=== PATIENT | female | born 1935 | race Asian ===

== ENCOUNTER 2018-08-28 15:24 | Inpatient (IN) | payer MEDICARE, OTHER ==
[~2018-08-28] VITALS: Ht 157.5 cm; Wt 49.5 kg
[2018-08-28] MEDS ORDERED: SOD CHLORIDE 0.9% 1,000 ML IV STA (18:23)
[2018-08-28] MEDS ORDERED: KETOROLAC 15 MG INJ IV STA (18:23)
[2018-08-28] MEDS ORDERED: ACYCLOVIR 500 MG in DEXTROSE 5% 100 ML IVPB ONE (18:30)
[2018-08-28] MEDS ORDERED: CEFTRIAXONE 1 GM/50 ML (PMX) 50 ML IVPB ONE (18:30)
[2018-08-28] MEDS ORDERED: CLON-379 PO (18:41)
[2018-08-28] MEDS ORDERED: OLME40TA13 PO (18:41)
[2018-08-28] MEDS ORDERED: METF-849 PO (18:42)
[2018-08-28] MEDS ORDERED: METO-429 PO (18:42)
[2018-08-28] MEDS ORDERED: HYDR12.58 PO (18:42)
[2018-08-28] MEDS ORDERED: METO-407 PO (18:42)
[2018-08-28] MEDS ORDERED: TETRACAINE 0.5% 4 ML OPH RIGHT EYE ONE (19:00)
--- NOTE | 2018-08-28 19:11 | ERD ---
ER Documentation Chief Complaint Chief Complaint RIGHT EYE PERIORBITAL SWELLING REDNESS/ITCHINESS SINCE AM HPI 83-year-old woman brought in by for soft tissue swelling over the right eye times 2 days, she also has a rash to the right upper forehead and across the right face that the states has been present for about 2-3 days although he is unsure of the timeline. Patient states she had a headache about 1 week ago which began resolved spontaneously. Patient has had no recent trauma, no falls, no weakness in her arms or legs, no complaints of chest pain or shortness of breath, no vomiting. ROS All systems reviewed and are negative except as per history of present illness. Medications Home Meds Reported Medications Hydrochlorothiazide* (Hydrochlorothiazide*) 12.5 Mg Tablet, 12.5 MG PO DAILY, #30 TAB 08/28/18 Metformin* (Glucophage*) 500 Mg Tab, 500 MG PO BID WITH MEALS, #90 TAB 08/28/18 Metoprolol Tartrate* (Lopressor*) 100 Mg Tablet, 100 MG PO QAM, #60 TAB 08/28/18 Metoprolol Tartrate* (Lopressor*) 50 Mg Tab, 50 MG PO QPM, #60 TAB 08/28/18 Olmesartan Medoxomil (Benicar) 40 Mg Tablet, 40 MG PO DAILY, #30 TAB 08/28/18 Clonidine Hcl* (Clonidine Hcl*) 0.1 Mg Tab, 0.1 MG PO Q8, TAB 08/28/18 Allergies Allergies: Coded Allergies: No Known Allergy (Unverified , 08/28/18) PMhx/Soc Diabetes mellitus, hypertension Medical and Surgical Hx: pt denies Medical Hx, pt denies Surgical Hx Hx Alcohol Use: No Hx Substance Use: No Hx Tobacco Use: No Smoking Status: Never smoker FmHx Family History: No diabetes Physical Exam Vitals Vital Signs Date Temp Pulse Resp B/P (MAP) Pulse Ox O2 O2 Flow FiO2 Time Delivery Rate 08/28/18 99.4 68 20 188/78 97 Room Air 18:45 (114) 08/28/18 99.4 74 20 190/97 97 15:26 (128) Physical Exam Const: No acute distress, afebrile HEENT: There is a papulovesicular eruption over the right forehead and right side of the face with soft tissue edema to the right upper and lower eyelids consistent with possible early periorbital cellulitis, no Kernig sign, no Brudzinski sign, pupils equal round reactive to light. Tympanic membrane on the right is without bulging or erythema, right EAC appears clean and dry. Negative Zhang's sign Resp: Clear to auscultation bilaterally Cardio: Regular rate and rhythm, no murmurs Abd: Soft, non tender, non distended. Skin: Papulovesicular rash over the right side of the face with soft tissue edema over the right orbital soft tissue Back: No midline or flank tenderness Ext: No cyanosis, or edema Neur: Awake and alert x3, no focal deficits or facial asymmetry, pupils equal round reactive to light Psych: Normal Mood and Affect Result Diagram: 08/28/18183408/28/181834 Results 24 hrs Laboratory Tests Test 08/28/18 18:35 White Blood Count 6.7 10^3/ul Red Blood Count 4.84 10^6/ul Hemoglobin 12.6 g/dl Hematocrit 39.2 % Mean Corpuscular Volume 81.0 fl Mean Corpuscular Hemoglobin 26.0 pg Mean Corpuscular Hemoglobin Concent 32.1 g/dl Red Cell Distribution Width 13.4 % Platelet Count 149 10^3/UL Mean Platelet Volume 9.4 fl Immature Granulocytes % 0.400 % Neutrophils % 66.3 % Lymphocytes % 27.3 % Monocytes % 5.2 % Eosinophils % 0.4 % Basophils % 0.4 % Nucleated Red Blood Cells % 0.0 /100WBC Immature Granulocytes # 0.030 10^3/ul Neutrophils # 4.4 10^3/ul Lymphocytes # 1.8 10^3/ul Monocytes # 0.4 10^3/ul Eosinophils # 0.0 10^3/ul Basophils # 0.0 10^3/ul Nucleated Red Blood Cells # 0.0 10^3/ul Urine Color TERA Urine Clarity CLOUDY Urine pH 5.0 Urine Specific [place] 1.023 Urine Ketones TRACE mg/dL Urine Nitrite NEGATIVE mg/dL Urine Bilirubin NEGATIVE mg/dL Urine Urobilinogen 1+ mg/dL Urine Leukocyte Esterase 1+ Rafia/ul Urine Microscopic RBC 8 /HPF Urine Microscopic WBC 102 /HPF Urine Bacteria MANY /HPF Urine Hemoglobin NEGATIVE mg/dL Urine Glucose NEGATIVE mg/dL Urine Total Protein 3+ mg/dl Sodium Level 139 mmol/L Potassium Level 4.6 mmol/L Chloride Level 104 mmol/L Carbon Dioxide Level 24 mmol/L Anion Gap 11 Blood Urea Nitrogen 45 mg/dl Creatinine 3.02 mg/dl Est Glomerular Filtrat Rate mL/min mL/min Glucose Level 184 mg/dl Calcium Level 8.8 mg/dl Total Bilirubin 0.3 mg/dl Direct Bilirubin 0.00 mg/dl Indirect Bilirubin 0.3 mg/dl Aspartate Amino Transf (AST/SGOT) 28 IU/L Alanine Aminotransferase (ALT/SGPT) 20 IU/L Alkaline Phosphatase 102 IU/L Troponin I < 0.012 ng/ml Total Protein 6.6 g/dl Albumin 3.5 g/dl Globulin 3.10 g/dl Albumin/Globulin Ratio 1.12 Lipase 95 U/L Current Medications Medications Dose Sig/Alberto Start Time Status Last (Trade) Ordered Route PRN Stop Time Admin Dose Reason Admin Acyclovir 100 ml @ ONCE ONCE 08/28/18 DC 08/28/18 500 mg/ 100 mls/hr IVPB 18:30 19:42 Dextrose 08/28/18 19:29 Ceftriaxone 50 ml @ ONCE ONCE 08/28/18 DC 08/28/18 Sodium 100 mls/hr IVPB 18:30 18:55 08/28/18 18:59 Sodium 1,000 ml @ Q1H STAT 08/28/18 DC 08/28/18 Chloride 1,000 mls/hr IV 18:23 18:54 08/28/18 19:22 Ketorolac 15 mg ONCE STAT 08/28/18 DC 08/28/18 Tromethamine IV 18:23 18:55 (Toradol) 08/28/18 18:31 Tetracaine 1 drop ONCE ONCE 08/28/18 DC HCl RIGHT EYE 19:00 (Tetracaine 08/28/18 19:01 0.5% Steri-Unit Gavi) Procedures/MDM IV line was established patient was placed on air sampling and monitoring rhythm strip reve aled a sinus rhythm at about 60 bpm with upright P and T waves. Patient was afebrile EKG performed, read by me revealed a normal sinus rhythm at 65 bpm, normal axis, first-degree AV block at 230 ms, no concerning ST elevations or depressions noted I administered 1 L normal saline IV, Toradol 15 mg IV, acyclovir 500 mg IV, and ceftriaxone 1 g IV. I suspect patient has superinfection over the right orbital tissue secondary to herpes zoster One AP view of the chest performed, read by me reveals no acute infiltrates, normal mediastinum, sharp costophrenic and cardiac borders, no air under the diaphragm. Otherwise unremarkable chest x-ray. CT scan of the brain was performed, impression: 1. 14.5 x 11.0 mm mass with increased attenuation deep left parietal lobe as described. This could represent an acute intra-axial bleed without significant surrounding vasogenic edema, a large acute subarachnoid thrombus or, deep posterior falx meningioma (less likely). 2. Chronic bilateral cerebral microvascular ischemic disease. CT scan of the maxillofacial bones were performed that was no retro-orbital extension on the right and no concerning findings. I applied tetracaine anesthetic ophthalmic solution and then stained the right cornea with fluorescein and there was no floor seen uptake on the right cornea. I obtain neurosurgical consultation given the patient's CT scan findings, he ki ndly agreed to consult the patient and saw the patient at the bedside, no need for acute neurosurgical intervention at this time and he will continue to consult. CBC was normal, electrolytes revealed dehydration and acute kidney injury with a BUN/creatinine of 45/3, liver function tests were normal, troponin was negative, urinalysis positive for infection. Critical Care: Time: 52 minutes, this was time separate from other billable procedures. Treatments/Evaluations: Close monitoring and treatment of unstable vital signs, cardiorespiratory, and neurologic status, while maintaining tight balance of fluid, respiratory, and cardiac interventions. Departure Diagnosis: Primary Impression: Shingles Herpes zoster complications: without complications Qualified Codes: B02.9 - Zoster without complications Additional Impressions: Periorbital cellulitis Laterality: right Qualified Codes: L03.213 - Periorbital cellulitis Dehydration Acute UTI Acute kidney injury Brain mass Condition: VEL Rodríguez MD Aug 28, 2018 19:11
[2018-08-28] MEDS ORDERED: DOCUSATE SODIUM 100 MG CAP PO PRN (21:30)
[2018-08-28] MEDS ORDERED: ACETAMINOPHEN 325 MG TAB PO PRN (21:30)
[2018-08-28] MEDS ORDERED: BISACODYL (EC) 5 MG TAB PO PRN (21:30)
[2018-08-28] MEDS ORDERED: NACL 0.9% 3 ML SYG IV SCH (21:30)
[2018-08-28] MEDS ORDERED: hydrALAzine 20 MG INJ IV PRN (21:30)
[2018-08-28] MEDS ORDERED: NON-FORMULARY/PATIENT OWN MED (Olmesartan Medoxomil (Benicar) 40 MG) PO SCH (21:30)
[2018-08-28] MEDS ORDERED: HYDROCODONE/APAP (5/325) TAB PO PRN (21:30)
[2018-08-28] MEDS: METOPROLOL 100 MG TAB PO SCH (21:52)
[2018-08-28] MEDS ORDERED: LOSARTAN 50 MG TAB PO SCH (22:00)
--- NOTE | 2018-08-28 22:14 | CONS ---
Assessment/Plan Assessment/Plan Assessment/Plan (Daily) Diagnosis 1) Meningioma 83 year old woman with incidental meningioma and another small lesion concerning for meningioma vs subacute bleed. - BP control (currently 190s) - MRI in AM - Regular diet - no indication for surgery Consultation Date/Type/Reason Admit Date/Time Date of Consultation: Aug 28, 2018 Type of Consult Neurosurgery Reason for Consultation Intracranial mass Date/Time of Note DATE: 08/28/18 TIME: 22:04 Hx of Present Illness Ms. Castaneda is an 83 year old female who presented with HSV infection and right corie-orbital swelling. A CT scan was performed and demonstrated a small intracranial meningioma and another larger, but still small lesion concerning for falcine meningioma vs. subacute bleed. She has no weakness or confusion. She denies use of blood thinners. Past Medical History Home Meds Reported Medications Hydrochlorothiazide* (Hydrochlorothiazide*) 12.5 Mg Tablet, 12.5 MG PO DAILY, #30 TAB 08/28/18 Metformin* (Glucophage*) 500 Mg Tab, 500 MG PO BID WITH MEALS, #90 TAB 08/28/18 Metoprolol Tartrate* (Lopressor*) 100 Mg Tablet, 100 MG PO QAM, #60 TAB 08/28/18 Metoprolol Tartrate* (Lopressor*) 50 Mg Tab, 50 MG PO QPM, #60 TAB 08/28/18 Olmesartan Medoxomil (Benicar) 40 Mg Tablet, 40 MG PO DAILY, #30 TAB 08/28/18 Clonidine Hcl* (Clonidine Hcl*) 0.1 Mg Tab, 0.1 MG PO Q8, TAB 08/28/18 Medications Current Medications Clonidine (Catapres) 0.1 mg Q8 PO Last administered on 08/28/18at 21:51; Admin Dose 0.1 MG; Start 08/28/18 at 22:00 Hydrochlorothiazide (Hydrochlorothiazide) 12.5 mg DAILY PO ; Start 08/29/18 at 09:00; Status Future Hold Metoprolol Tartrate (Lopressor) 50 mg QPM PO ; Start 08/29/18 at 21:00 Metoprolol Tartrate (Lopressor) 100 mg QAM PO Last administered on 08/28/18at 21:52; Admin Dose 100 MG; Start 08/28/18 at 21:30 Hydralazine HCl (Apresoline) 20 mg Q6H PRN IV ELEVATED BLOOD PRESSURE; Start 08/28/18 at 21:30 Hydralazine HCl (Apresoline) 10 mg Q4H PRN IV ELEVATED BLOOD PRESSURE; Start 08/28/18 at 21:30 IV Flush (NS 3 ml) 3 ml PER PROTOCOL IV ; Start 08/28/18 at 21:30 Ondansetron HCl (Zofran Inj) 4 mg Q6H PRN IV NAUSEA/VOMITING; Start 08/28/18 at 21:30 Acetaminophen (Tylenol Tab) 650 mg Q6H PRN PO .PAIN 1-3 OR TEMP; Start 08/28/18 at 21:30 Acetaminophen/ Hydrocodone Bitart (Honor (5/325)) 1 tab Q6H PRN PO .PAIN 4-6; Start 08/28/18 at 21:30 Docusate Sodium (Colace) 100 mg Q12H PRN PO .CONSTIPATION; Start 08/28/18 at 21:30 Bisacodyl (Dulcolax) 5 mg DAILY PRN PO .CONSTIPATION; Start 08/28/18 at 21:30 Ceftriaxone Sodium 50 ml @ 100 mls/hr Q24H IVPB ; Start 08/29/18 at 18:00 Losartan Potassium (Cozaar) 100 mg DAILY PO ; Start 08/28/18 at 22:00 Allergies: Coded Allergies: No Known Allergy (Unverified , 08/28/18) Social History Smoking Status: Never smoker Exam/Review of Systems Exam Vitals Vital Signs Date Temp Pulse Resp B/P (MAP) Pulse Ox O2 O2 Flow FiO2 Time Delivery Rate 08/28/18 99.4 75 20 199/81 100 Room Air 21:40 (120) Exam awake alert right orbital erythema and swelling full strenth Results Result Diagram: 08/28/18 1835 08/28/18 1835 Results 24hrs Laboratory Tests Test 08/28/18 18:35 White Blood Count 6.7 Red Blood Count 4.84 Hemoglobin 12.6 Hematocrit 39.2 Mean Corpuscular Volume 81.0 L Mean Corpuscular Hemoglobin 26.0 L Mean Corpuscular Hemoglobin Concent 32.1 Red Cell Distribution Width 13.4 Platelet Count 149 Mean Platelet Volume 9.4 Immature Granulocytes % 0.400 Neutrophils % 66.3 Lymphocytes % 27.3 Monocytes % 5.2 Eosinophils % 0.4 Basophils % 0.4 Nucleated Red Blood Cells % 0.0 Immature Granulocytes # 0.030 Neutrophils # 4.4 Lymphocytes # 1.8 Monocytes # 0.4 Eosinophils # 0.0 Basophils # 0.0 Nucleated Red Blood Cells # 0.0 Urine Color TERA Urine Clarity CLOUDY A Urine pH 5.0 Urine Specific [place] 1.023 Urine Ketones TRACE A Urine Nitrite NEGATIVE Urine Bilirubin NEGATIVE Urine Urobilinogen 1+ H Urine Leukocyte Esterase 1+ H Urine Microscopic RBC 8 H Urine Microscopic WBC 102 H Urine Bacteria MANY A Urine Hemoglobin NEGATIVE Urine Glucose NEGATIVE Urine Total Protein 3+ H Sodium Level 139 Potassium Level 4.6 Chloride Level 104 Carbon Dioxide Level 24 Anion Gap 11 Blood Urea Nitrogen 45 H Creatinine 3.02 H Est Glomerular Filtrat Rate mL/min Glucose Level 184 Calcium Level 8.8 Total Bilirubin 0.3 Direct Bilirubin 0.00 Indirect Bilirubin 0.3 Aspartate Amino Transf (AST/SGOT) 28 Alanine Aminotransferase (ALT/SGPT) 20 Alkaline Phosphatase 102 Troponin I < 0.012 Total Protein 6.6 Albumin 3.5 Globulin 3.10 Albumin/Globulin Ratio 1.12 Lipase 95 Imaging Imaging Anterior small calcified falcine meningioma Larger posterior falcine lesion - meningioma vs subacute hemorrhage with subarachnoid extension Medications Medication Current Medications Clonidine (Catapres) 0.1 mg Q8 PO Last administered on 08/28/18at 21:51; Admin Dose 0.1 MG; Start 08/28/18 at 22:00 Hydrochlorothiazide (Hydrochlorothiazide) 12.5 mg DAILY PO ; Start 08/29/18 at 09:00; Status Future Hold Metoprolol Tartrate (Lopressor) 50 mg QPM PO ; Start 08/29/18 at 21:00 Metoprolol Tartrate (Lopressor) 100 mg QAM PO Last administered on 08/28/18at 21:52; Admin Dose 100 MG; Start 08/28/18 at 21:30 Hydralazine HCl (Apresoline) 20 mg Q6H PRN IV ELEVATED BLOOD PRESSURE; Start 08/28/18 at 21:30 Hydralazine HCl (Apresoline) 10 mg Q4H PRN IV ELEVATED BLOOD PRESSURE; Start 08/28/18 at 21:30 IV Flush (NS 3 ml) 3 ml PER PROTOCOL IV ; Start 08/28/18 at 21:30 Ondansetron HCl (Zofran Inj) 4 mg Q6H PRN IV NAUSEA/VOMITING; Start 08/28/18 at 21:30 Acetaminophen (Tylenol Tab) 650 mg Q6H PRN PO .PAIN 1-3 OR TEMP; Start 08/28/18 at 21:30 Acetaminophen/ Hydrocodone Bitart (Honor (5/325)) 1 tab Q6H PRN PO .PAIN 4-6; Start 08/28/18 at 21:30 Docusate Sodium (Colace) 100 mg Q12H PRN PO .CONSTIPATION; Start 08/28/18 at 21:30 Bisacodyl (Dulcolax) 5 mg DAILY PRN PO .CONSTIPATION; Start 08/28/18 at 21:30 Ceftriaxone Sodium 50 ml @ 100 mls/hr Q24H IVPB ; Start 08/29/18 at 18:00 Losartan Potassium (Cozaar) 100 mg DAILY PO ; Start 08/28/18 at 22:00 ZHANNA DIAZ MD Aug 28, 2018 22:14
[2018-08-28] MEDS ORDERED: LORAZEPAM 0.5 MG TAB PO ONE (22:30)
[2018-08-28 22:40] VITALS: BP 158/78; PULSE 74; RESP 20; Ht 157.5 cm; Wt 49.5 kg
[2018-08-28 22:44] VITALS: PULSE 72
--- NOTE | 2018-08-28 23:38 | HP ---
Date/Time of Note Date/Time of Note DATE: 08/28/18 TIME: 23:37 Assessment/Plan VTE Prophylaxis SCD applied (from Nsg): Yes Pharmacological prophylaxis: NA/contraindicated Pharm contraindication: low risk/ambulating Lines/Catheters IV Catheter Type (from Nrsg): [place] Assessment/Plan Hospital Course This is a 83-year-old female being admitted to the telemetry floor for: #1 right periorbital cellulitis with possible shingles: Questionable dermatomal pattern of rash seen from the right upper eyelid up to the scalp, no crusting lesions noted. However concern for possible shingles related infection. Patient was started on acyclovir in the ED, will continue acyclovir 200 mg twice daily(renal dosing) for now. Will also treat for periorbital cellulitis with clindamycin and amoxicillin(renal dosing). Patient denies any pain upon movement of her eyes. #2 parietal lobe mass: CT of the brain showed a 14.5 x 11.0 mm mass with increased attenuation deep left parietal lobe as described. This could represent an acute intra-axial bleed without significant surrounding vasogenic edema, a large acute subarachnoid thrombus or, deep posterior falx meningioma (less likely). Patient was seen and evaluated by neurosurgery who at the current time did not recommend any acute surgical intervention. Recommendation was to control patient's blood pressure as well as obtain an MRI with and without contrast which will be ordered. #3 right eye conjunctivitis: There also appears to be purulent discharge. Will prescribe ofloxacin 2 drops to the right eye every 6 hours times 7 days #4 hypertensive urgency: Patient blood pressure was noted to be in the systolic of 199. Will continue home clonidine, metoprolol while holding hydrochlorothiazide and Cozaar given patient's renal function. PRN hydralazine. #5 acute versus acute on chronic kidney disease: I do not have a previous baseline creatinine. Creatinine at the current time is 3.0. Urinalysis does show presence of 3+ protein as well as leukoesterase: We will provide IV fluid hydration with normal saline. Will monitor renal function. Urine microalbumin and microscopic UA. Renal ultrasound. Will consult nephrology #6 urinary tract infection: Await urine culture, ceftriaxone 1 g every 24 hours #7 hypertension: Please see #3 # 8diabetes mellitus: We will check hemoglobin A 1C, hold home oral medications #9 DVT GI prophylaxis: SCDs, no GI prophylaxis indicated Further treatment strategy will be implemented as per the clinical course Result Diagram: 08/28/18183408/28/181834 Results 24hrs Laboratory Tests Test 08/28/18 18:35 White Blood Count 6.7 Red Blood Count 4.84 Hemoglobin 12.6 Hematocrit 39.2 Mean Corpuscular Volume 81.0 L Mean Corpuscular Hemoglobin 26.0 L Mean Corpuscular Hemoglobin Concent 32.1 Red Cell Distribution Width 13.4 Platelet Count 149 Mean Platelet Volume 9.4 Immature Granulocytes % 0.400 Neutrophils % 66.3 Lymphocytes % 27.3 Monocytes % 5.2 Eosinophils % 0.4 Basophils % 0.4 Nucleated Red Blood Cells % 0.0 Immature Granulocytes # 0.030 Neutrophils # 4.4 Lymphocytes # 1.8 Monocytes # 0.4 Eosinophils # 0.0 Basophils # 0.0 Nucleated Red Blood Cells # 0.0 Urine Color TERA Urine Clarity CLOUDY A Urine pH 5.0 Urine Specific [place] 1.023 Urine Ketones TRACE A Urine Nitrite NEGATIVE Urine Bilirubin NEGATIVE Urine Urobilinogen 1+ H Urine Leukocyte Esterase 1+ H Urine Microscopic RBC 8 H Urine Microscopic WBC 102 H Urine Bacteria MANY A Urine Hemoglobin NEGATIVE Urine Glucose NEGATIVE Urine Total Protein 3+ H Sodium Level 139 Potassium Level 4.6 Chloride Level 104 Carbon Dioxide Level 24 Anion Gap 11 Blood Urea Nitrogen 45 H Creatinine 3.02 H Est Glomerular Filtrat Rate mL/min Glucose Level 184 Calcium Level 8.8 Total Bilirubin 0.3 Direct Bilirubin 0.00 Indirect Bilirubin 0.3 Aspartate Amino Transf (AST/SGOT) 28 Alanine Aminotransferase (ALT/SGPT) 20 Alkaline Phosphatase 102 Troponin I < 0.012 Total Protein 6.6 Albumin 3.5 Globulin 3.10 Albumin/Globulin Ratio 1.12 Lipase 95 HPI/ROS Admit Date/Time Admit Date/Time Hx of Present Illness Chief complaint: Right eye swelling, redness This is a 83-year-old woman who was brought into the ER accompanied by her complaining of right eye swelling that started this morning. Patient and her state that the rash started in the morning when he woke up and that her eye was completely normal yesterday. Patient denies any fevers or any pain. It has been difficult to her to fully open the eyelid however when she does she does not report any changes in her vision. She denies any trauma to the eye. She also has a rash to the right upper forehead and across the right face that the states has been present for about 2-3 days although he is unsure of the timeline. Patient does report that she has had headaches on and off for the past couple of weeks. She denies any problems with ambulation or any speech deficits or any other neurological deficits. Patient has had no recent trauma, no falls, no weakness in her arms or legs, no complaints of chest pain or shortness of breath, no vomiting. Allergies: NKDA Medications: See MAR ROS Const: As per HPI Eyes : As per HPI ENT: As per HPI Respiratory: No shortness of breath, cough, sputum, wheezing, or pleuritic pain Cardiovascular: No chest pain, palpitation, PND, or edema GI : no change in appetite, abdominal pain, nausea, vomiting, diarrhea, constipation, or change in the color his stool Genitourinary: No dysuria, hematuria, flank pain , discharge or CVA tenderness Musculoskeletal: No joint pain, back pain, neck pain, restricted range of motion in neck or joints Skin: As per HPI Neuro: No headache, dizziness, syncope, seizure, focal weakness Endocrine: No polyuria, polydipsia, temperature intolerance Psych: No hallucination, depression, anxiety or suicidal ideation PMH/Family/Social Past Medical History Hypertension, diabetes mellitus Medications Current Medications Clonidine (Catapres) 0.1 mg Q8 PO Last administered on 08/28/18at 21:51; Admin Dose 0.1 MG; Start 08/28/18 at 22:00 Hydrochlorothiazide (Hydrochlorothiazide) 12.5 mg DAILY PO ; Start 08/29/18 at 09:00; Status Future Hold Metoprolol Tartrate (Lopressor) 50 mg QPM PO ; Start 08/29/18 at 21:00 Metoprolol Tartrate (Lopressor) 100 mg QAM PO Last administered on 08/28/18at 21:52; Admin Dose 100 MG; Start 08/28/18 at 21:30 Hydralazine HCl (Apresoline) 20 mg Q6H PRN IV ELEVATED BLOOD PRESSURE; Start 08/28/18 at 21:30 Hydralazine HCl (Apresoline) 10 mg Q4H PRN IV ELEVATED BLOOD PRESSURE; Start 08/28/18 at 21:30 IV Flush (NS 3 ml) 3 ml PER PROTOCOL IV ; Start 08/28/18 at 21:30 Ondansetron HCl (Zofran Inj) 4 mg Q6H PRN IV NAUSEA/VOMITING; Start 08/28/18 at 21:30 Acetaminophen (Tylenol Tab) 650 mg Q6H PRN PO .PAIN 1-3 OR TEMP; Start 08/28/18 at 21:30 Acetaminophen/ Hydrocodone Bitart ([place] (5/325)) 1 tab Q6H PRN PO .PAIN 4-6; Start 08/28/18 at 21:30 Docusate Sodium (Colace) 100 mg Q12H PRN PO .CONSTIPATION; Start 08/28/18 at 21:30 Bisacodyl (Dulcolax) 5 mg DAILY PRN PO .CONSTIPATION; Start 08/28/18 at 21:30 Ceftriaxone Sodium 50 ml @ 100 mls/hr Q24H IVPB ; Start 08/29/18 at 18:00 Losartan Potassium (Cozaar) 100 mg DAILY PO ; Start 08/28/18 at 22:00 Clindamycin HCl (Cleocin) 300 mg Q8 PO ; Start 08/28/18 at 23:00 Amoxicillin (Amoxicillin) 500 mg BID PO ; Start 08/28/18 at 23:00 Acyclovir (Zovirax) 200 mg BID PO ; Start 08/29/18 at 09:00 Coded Allergies: No Known Allergy (Unverified , 08/28/18) Past Surgical History Bilateral cataract surgery Family History Significant Family History: no pertinent family hx Social History Alcohol Use: none Smoking Status: Never smoker Drug Use: none Exam/Review of Systems Vital Signs Vitals Vital Signs Date Temp Pulse Resp B/P (MAP) Pulse Ox O2 O2 Flow FiO2 Time Delivery Rate 08/28/18 99.4 72 20 168/81 98 Room Air 22:25 (110) Exam Exam General: Patient is currently lying in bed in no acute distress HEENT: Right periorbital swelling, erythema of the right eyelids, fluorescein stain did not show any uptake of the right cornea(performed at the bedside by the ED physician with me present) purulent discharge noted as well Neck: Supple with full range of motion. No rigidity or meningismus Chest: Nontender Lungs: Clear to auscultation bilaterally no crackles rales or wheezing Heart: Normal S1-S2, Regular rhythm and rate. No murmur, S3, or S4 Abdomen: Soft , nontender, nondistended , bowel sounds are present. No guarding no rebound tenderness , No masses or organomegaly. No costovertebral temporal angle mass Extremities: Normal to inspection, no edema no cyanosis Skin: Right periorbital swelling, mild erythema of the eyelids, questionable maculopapular rash from the top of the right eyelid tracking up to the scalp and possible dermatomal fashion, no crusting or lesions noted Neurologic: Normal mental status, speech normal, cranial nerves II through XII are intact, motor and sensory are intact, no focal weakness Additional Comments PROCEDURE: CT Brain without contrast. CLINICAL INDICATION: 83-year-old. Headache. Swelling. TECHNIQUE: A CT of the brain was performed on a multi-slice CT scanner utilizing axial imaging from the skull base through the vertex without IV contrast. Multiplanar reformatted images were made. Images were reviewed on a PACS workstation. One or more the following dose reduction techniques were utilized: Automated exposure control, adjustment of mA/ or kV according to patient's size, or use of iterative reconstruction technique. DICOM images are available for review. The CTDIvol is 39.6 mGy and the DLP is see 364.23 mGycm. COMPARISON: None FINDINGS: Cerebral and cerebellar volume loss with cortical sulcal prominence and slight ex vacuo enlargement of the lateral third ventricles. There is a 14.5 x 11.0 mm focus of increased attenuation in the deep left parietal lobe, posterior to the posterior body and splenium of the corpus callosum. No significant surrounding vasogenic edema. Patchy low attenuation changes are present throughout the white matter of the left and right cerebral hemispheres. No acute subdural hemorrhage. Partially calcified 8 mm right fall seen meningioma at the vertex. [place] - white matter differentiation is maintained. Asymmetric decreased attenuation within the left sub insular tracts. No hyperdense MCA or basilar artery sign. Calcified plaque left and right carotid siphons and intradural vertebral arteries. Visualized paranasal sinuses are clear. Mastoid air cells are clear. IMPRESSION: 1. 14.5 x 11.0 mm mass with increased attenuation deep left parietal lobe as de scribed. This could represent an acute intra-axial bleed without significant surrounding vasogenic edema, a large acute subarachnoid thrombus or, deep posterior falx meningioma (less likely). 2. Chronic bilateral cerebral microvascular ischemic disease. Call report given to Dr. Larios at [facility] ED at 2031 hours [place] standard time. RPTAT: [facility] Manuel Velasco, Physician Date Time Electronically viewed and signed by Manuel Velasco, Physician on 08/28/2018 20:33 RS/ CC: VEL LARIOS MD [id number] PROCEDURE: XR Chest, 1 View CLINICAL INDICATION: Pain. TECHNIQUE: Frontal view of the chest. COMPARISON: None FINDINGS: LUNGS: No consolidative pulmonary infiltrates noted. PLEURAL SPACE: Unremarkable. No pneumothorax. HEART: Borderline cardiomegaly. MEDIASTINUM: Mild widening of the superior mediastinum, likely secondary to tortuous of the great vessels or substernal goiter. BONES/JOINTS: Mild scoliosis and degeneration of the thoracic spine. IMPRESSION: No consolidative pulmonary infiltrates noted. RPTAT: [facility] Andrea Tomlin, Physician Optical Design Engineer Date Time Electronically viewed and signed by Andrea Tomlin, Physician Optical Design Engineer on 08/28/2018 19:52 RmC/ CC: VEL LARIOS MD [id number] PROCEDURE: CT Maxillofacial without contrast CLINICAL INDICATION: Right orbital swelling. Right orbital shingles. TECHNIQUE: A CT of the facial bones was performed on a multi-slice CT scanner utilizing high-resolution axial images. Sagittal, coronal, and multiplanar reformatted images were made. Additionally, 3-D reformatted images were made. One or more the following dose reduction techniques were utilized: Automated exposure control, adjustment of the mA/ or kV according to patient's size, or use of iterative reconstruction technique. DICOM images are available for review. The CTDIvol is 29.35 mGy and the DLP is 589.67 mGycm. COMPARISON: None. FINDINGS: Osseous structures: The patient is edentulous. Mandible, zygomatic arches, pterygoid plates and anterior maxillary spine are intact. The nasal bones, nasal septum, left and right maxilla and bony orbits are intact. Right maxillary sinus polyp. Soft tissues: Asymmetric right periorbital soft tissue swelling with diffuse edema/inflammatory phlegmon present. No definite localized fluid collections. The globes and retro-orbital soft tissues are symmetric and intact. No foreign body identified. IMPRESSION: 1. Right periorbital soft tissue swelling, nonspecific. 2. No retro-orbital extension. 3. Osseous structures intact. RPTAT: [facility] Physician Vielka Date Time Electronically viewed and signed by Physician Vielka on 08/28/2018 20:36 RS/ CC: VEL LARIOS MD [id number] JAX ANGEL Aug 28, 2018 23:38
[2018-08-29] VITALS (11 sets, daily range): BP systolic 115–241; BP diastolic 56–108; PULSE 55–78; RESP 16–22
[2018-08-29] MEDS: AMOXICILLIN 500 MG CAP PO SCH ×3 (02:34→22:10)
[2018-08-29] MEDS: CIPROFLOXACIN 0.3% 2.5 ML OPH RIGHT EYE SCH ×5 (02:35→22:01)
[2018-08-29] MEDS: CLINDAMYCIN 300 MG CAP PO SCH ×4 (02:35→22:10)
[2018-08-29] MEDS ORDERED: GLUCOSE GEL 15 GRAM TUBE PO PRN ×2 (04:00)
[2018-08-29] MEDS ORDERED: LABETALOL HCL 20MG INJ IV ONE (04:00)
[2018-08-29] MEDS ORDERED: DEXTROSE 50% 50 ML SYRINGE IV PRN ×2 (04:00)
[2018-08-29] MEDS ORDERED: GLUCOSE GEL 15 GRAM TUBE BUCCAL PRN (04:00)
[2018-08-29] MEDS ORDERED: GLUCAGON 1 MG INJ IM PRN (04:00)
[2018-08-29] MEDS ORDERED: morphine 2 MG INJ IV PRN (04:00)
[2018-08-29] MEDS: AMLODIPINE 10 MG TAB PO SCH ×2 (04:20→10:20)
[2018-08-29] MEDS: ONDANSETRON 4 MG INJ IV PRN (04:29)
[2018-08-29] MEDS ORDERED: HYDROCODONE/APAP (5/325) TAB PO PRN (05:30)
[2018-08-29] MEDS: INSULIN ASPART [NOVOLOG] 3 ML PEN SC SCH ×4 (07:58→21:00)
--- NOTE | 2018-08-29 08:54 | CONS ---
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 Neither is causing mass effect. No specific neurosurgical needs. Can follow-up with MRI in 6 months Consultation Date/Type/Reason Admit Date/Time Aug 28, 2018 at 20:53 Initial Consult Date 08/28/18 Type of Consult Neurosurgery Date/Time of Note DATE: 08/29/18 TIME: 08:51 24 HR Interval Summary Free Text/Dictation HD2 with orbital swelling and falcine lesions MRI done overnight Exam/Review of Systems Exam Vitals Vital Signs Date Temp Pulse Resp B/P (MAP) Pulse Ox O2 O2 Flow FiO2 Time Delivery Rate 08/29/18 98.3 63 18 140/63 96 08:00 (88) 08/28/18 Room Air 22:25 Intake and Output 08/28/18 08/28/18 08/29/18 1515:00 23:00 07:00 IntakeIntake Total 400 ml BalanceBalance 400 ml Exam nonfocal Results Result Diagram: 08/29/18 0530 08/29/18 0530 Results 24hrs Laboratory Tests Test 08/28/18 18:35 08/29/18 05:30 08/29/18 07:58 White Blood Count 6.7 6.3 Red Blood Count 4.84 4.27 Hemoglobin 12.6 11.4 L Hematocrit 39.2 34.6 L Mean Corpuscular Volume 81.0 L 81.0 L Mean Corpuscular Hemoglobin 26.0 L 26.7 L Mean Corpuscular Hemoglobin Concent 32.1 32.9 Red Cell Distribution Width 13.4 13.4 Platelet Count 149 147 Mean Platelet Volume 9.4 10.1 Immature Granulocytes % 0.400 0.600 H Neutrophils % 66.3 65.7 Lymphocytes % 27.3 24.1 Monocytes % 5.2 8.8 Eosinophils % 0.4 0.3 Basophils % 0.4 0.5 Nucleated Red Blood Cells % 0.0 0.0 Immature Granulocytes # 0.030 0.040 H Neutrophils # 4.4 4.2 Lymphocytes # 1.8 1.5 Monocytes # 0.4 0.6 Eosinophils # 0.0 0.0 Basophils # 0.0 0.0 Nucleated Red Blood Cells # 0.0 0.0 Urine Color TERA Urine Clarity CLOUDY A Urine pH 5.0 Urine Specific [place] 1.023 Urine Ketones TRACE A Urine Nitrite NEGATIVE Urine Bilirubin NEGATIVE Urine Urobilinogen 1+ H Urine Leukocyte Esterase 1+ H Urine Microscopic RBC 8 H Urine Microscopic WBC 102 H Urine Bacteria MANY A Urine Hemoglobin NEGATIVE Urine Glucose NEGATIVE Urine Total Protein 3+ H Sodium Level 139 136 Potassium Level 4.6 3.7 Chloride Level 104 107 Carbon Dioxide Level 24 20 L Anion Gap 11 9 Blood Urea Nitrogen 45 H 39 H Creatinine 3.02 H 2.41 H Est Glomerular Filtrat Rate mL/min Glucose Level 184 144 # Calcium Level 8.8 7.9 L Total Bilirubin 0.3 0.2 Direct Bilirubin 0.00 0.00 Indirect Bilirubin 0.3 0.2 Aspartate Amino Transf (AST/SGOT) 28 22 Alanine Aminotransferase (ALT/SGPT) 20 22 Alkaline Phosphatase 102 85 Troponin I < 0.012 Total Protein 6.6 6.1 Albumin 3.5 3.0 L Globulin 3.10 3.10 Albumin/Globulin Ratio 1.12 0.96 Lipase 95 Hemoglobin A1c 6.5 H Magnesium Level 1.7 Triglycerides Level 137 Cholesterol Level 166 LDL Cholesterol, Calculated 114 HDL Cholesterol 25 L Cholesterol/HDL Ratio 6.6 Thyroid Stimulating Hormone (TSH) 4.640 Bedside Glucose 114 Imaging Imaging MRI demonstrates that both lesions are small meningiomas Medications Medication Current Medications Clonidine (Catapres) 0.1 mg Q8 PO Last administered on 08/29/18at 06:22; Admin Dose 0.1 MG; Start 08/28/18 at 22:00 Metoprolol Tartrate (Lopressor) 50 mg QPM PO ; Start 08/29/18 at 21:00 Metoprolol Tartrate (Lopressor) 100 mg QAM PO Last administered on 08/28/18at 21:52; Admin Dose 100 MG; Start 08/28/18 at 21:30 Hydralazine HCl (Apresoline) 20 mg Q6H PRN IV ELEVATED BLOOD PRESSURE Last administered on 08/29/18at 03:36; Admin Dose 20 MG; Start 08/28/18 at 21:30 Hydralazine HCl (Apresoline) 10 mg Q4H PRN IV ELEVATED BLOOD PRESSURE; Start 08/28/18 at 21:30 IV Flush (NS 3 ml) 3 ml PER PROTOCOL IV ; Start 08/28/18 at 21:30 Ondansetron HCl (Zofran Inj) 4 mg Q6H PRN IV NAUSEA/VOMITING Last administered on 08/29/18at 04:29; Admin Dose 4 MG; Start 08/28/18 at 21:30 Acetaminophen (Tylenol Tab) 650 mg Q6H PRN PO .PAIN 1-3 OR TEMP; Start 08/28/18 at 21:30 Docusate Sodium (Colace) 100 mg Q12H PRN PO .CONSTIPATION; Start 08/28/18 at 21:30 Bisacodyl (Dulcolax) 5 mg DAILY PRN PO .CONSTIPATION; Start 08/28/18 at 21:30 Ceftriaxone Sodium 50 ml @ 100 mls/hr Q24H IVPB ; Start 08/29/18 at 18:00 Clindamycin HCl (Cleocin) 300 mg Q8 PO Last administered on 08/29/18at 06:22; Admin Dose 300 MG; Start 08/28/18 at 23:00 Amoxicillin (Amoxicillin) 500 mg BID PO Last administered on 08/29/18at 02:34; Admin Dose 500 MG; Start 08/28/18 at 23:00 Acyclovir (Zovirax) 200 mg BID PO ; Start 08/29/18 at 09:00 Ciprofloxacin HCl (Ciloxan 0.3% Oph) 2 drop Q6H RIGHT EYE Last administered on 08/29/18at 06:22; Admin Dose 2 DROP; Start 08/29/18 at 00:00; Stop 09/04/18 at 23:59 Amlodipine Besylate (Norvasc) 10 mg DAILY PO Last administered on 08/29/18at 04:20; Admin Dose 10 MG; Start 08/29/18 at 04:00 Acetaminophen/ Hydrocodone Bitart ([place] (5/325)) 1 tab Q4H PRN PO .PAIN 4-6; Start 08/29/18 at 05:30 Diagnostic Test (Pha) (Accu-Chek) 1 ea 02 XX ; Start 08/30/18 at 02:00 Insulin Aspart (Novolog Insulin Pen) NOVOLOG *MILD* ALGORITHM WITH MEALS BEDTIME SC ; Start 08/29/18 at 08:00 Miscellaneous Information 1 ea NOTE XX ; Start 08/29/18 at 04:00 Glucose (Glutose) 15 gm Q15M PRN PO DECREASED GLUCOSE; Start 08/29/18 at 04:00 Glucose (Glutose) 22.5 gm Q15M PRN PO DECREASED GLUCOSE; Start 08/29/18 at 04:00 Dextrose (D50w Syringe) 25 ml Q15M PRN IV DECREASED GLUCOSE; Start 08/29/18 at 04:00 Dextrose (D50w Syringe) 50 ml Q15M PRN IV DECREASED GLUCOSE; Start 08/29/18 at 04:00 Glucagon (Glucagen) 1 mg Q15M PRN IM DECREASED GLUCOSE; Start 08/29/18 at 04:00 Glucose (Glutose) 15 gm Q15M PRN BUCCAL DECREASED GLUCOSE; Start 08/29/18 at 04:00 Morphine Sulfate (morphine) 2 mg Q4H PRN IV SEVERE PAIN LEVEL 7-10; Start 08/29/18 at 04:00 ZHANNA DIAZ MD Aug 29, 2018 08:54
[2018-08-29] MEDS ORDERED: HYDROCHLOROTHIAZIDE 12.5 MG CAP PO SCH (09:00)
[2018-08-29] MEDS: METOPROLOL 100 MG TAB PO SCH (10:19)
[2018-08-29] MEDS: ACYCLOVIR 200 MG CAP PO SCH ×2 (10:19→21:58)
--- NOTE | 2018-08-29 14:20 | PN ---
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 Swelling is "half what it was", suggesting current treatments are effective. Will continue with clindamycin, amoxicillin and acyclovir Severe hypertension: - Continue home regimen of amlodipine, clonidine 0.1 q8h, metoprolol KERRY on CKD - Unknown baseline creatinine - Hold PAIGE, trend BP Result Diagram: 08/29/18 0530 08/29/18 0530 Results 24hrs Laboratory Tests Test 08/28/18 18:35 08/29/18 05:30 08/29/18 07:58 08/29/18 12:01 White Blood Count 6.7 6.3 Red Blood Count 4.84 4.27 Hemoglobin 12.6 11.4 L Hematocrit 39.2 34.6 L Mean Corpuscular 81.0 L 81.0 L Volume Mean Corpuscular 26.0 L 26.7 L Hemoglobin Mean Corpuscular 32.1 32.9 Hemoglobin Concent Red Cell 13.4 13.4 Distribution Width Platelet Count 149 147 Mean Platelet Volume 9.4 10.1 Immature 0.400 0.600 H Granulocytes % Neutrophils % 66.3 65.7 Lymphocytes % 27.3 24.1 Monocytes % 5.2 8.8 Eosinophils % 0.4 0.3 Basophils % 0.4 0.5 Nucleated Red Blood 0.0 0.0 Cells % Immature 0.030 0.040 H Granulocytes # Neutrophils # 4.4 4.2 Lymphocytes # 1.8 1.5 Monocytes # 0.4 0.6 Eosinophils # 0.0 0.0 Basophils # 0.0 0.0 Nucleated Red Blood 0.0 0.0 Cells # Urine Color TERA Urine Clarity CLOUDY A Urine pH 5.0 Urine Specific 1.023 [place] Urine Ketones TRACE A Urine Nitrite NEGATIVE Urine Bilirubin NEGATIVE Urine Urobilinogen 1+ H Urine Leukocyte 1+ H Esterase Urine Microscopic 8 H RBC Urine Microscopic 102 H WBC Urine Bacteria MANY A Urine Hemoglobin NEGATIVE Urine Glucose NEGATIVE Urine Total Protein 3+ H Sodium Level 139 136 Potassium Level 4.6 3.7 Chloride Level 104 107 Carbon Dioxide Level 24 20 L Anion Gap 11 9 Blood Urea Nitrogen 45 H 39 H Creatinine 3.02 H 2.41 H Est Glomerular Filtrat Rate mL/min Glucose Level 184 144 # Calcium Level 8.8 7.9 L Total Bilirubin 0.3 0.2 Direct Bilirubin 0.00 0.00 Indirect Bilirubin 0.3 0.2 Aspartate Amino 28 22 Transf (AST/SGOT) Alanine 20 22 Aminotransferase (AL T/SGPT) Alkaline Phosphatase 102 85 Troponin I < 0.012 Total Protein 6.6 6.1 Albumin 3.5 3.0 L Globulin 3.10 3.10 Albumin/Globulin 1.12 0.96 Ratio Lipase 95 Hemoglobin A1c 6.5 H Magnesium Level 1.7 Triglycerides Level 137 Cholesterol Level 166 LDL Cholesterol, 114 Calculated HDL Cholesterol 25 L Cholesterol/HDL 6.6 Ratio Thyroid Stimulating 4.640 Hormone (TSH) Bedside Glucose 114 126 Subjective 24 Hr Interval Summary Free Text/Dictation She says periorbital swelling and pain have diminished since presentation She has no visual loss she says Exam/Review of Systems Exam Vitals Vital Signs Date Temp Pulse Resp B/P (MAP) Pulse Ox O2 O2 Flow FiO2 Time Delivery Rate 08/29/18 58 12:01 08/29/18 98.3 18 140/63 96 08:00 (88) 08/28/18 Room Air 22:25 Intake and Output 08/28/18 08/28/18 08/29/18 1515:00 23:00 07:00 IntakeIntake Total 400 ml BalanceBalance 400 ml Exam Raised vesicular lesions over R face Periorbital erythema and edema Tender to palpation No drainage or exudate RRR Breathing comfortably Soft nt wwp no edema Results Results 24hrs Laboratory Tests Test 08/28/18 18:35 08/29/18 05:30 08/29/18 07:58 08/29/18 12:01 White Blood Count 6.7 6.3 Red Blood Count 4.84 4.27 Hemoglobin 12.6 11.4 L Hematocrit 39.2 34.6 L Mean Corpuscular 81.0 L 81.0 L Volume Mean Corpuscular 26.0 L 26.7 L Hemoglobin Mean Corpuscular 32.1 32.9 Hemoglobin Concent Red Cell 13.4 13.4 Distribution Width Platelet Count 149 147 Mean Platelet Volume 9.4 10.1 Immature 0.400 0.600 H Granulocytes % Neutrophils % 66.3 65.7 Lymphocytes % 27.3 24.1 Monocytes % 5.2 8.8 Eosinophils % 0.4 0.3 Basophils % 0.4 0.5 Nucleated Red Blood 0.0 0.0 Cells % Immature 0.030 0.040 H Granulocytes # Neutrophils # 4.4 4.2 Lymphocytes # 1.8 1.5 Monocytes # 0.4 0.6 Eosinophils # 0.0 0.0 Basophils # 0.0 0.0 Nucleated Red Blood 0.0 0.0 Cells # Urine Color TERA Urine Clarity CLOUDY A Urine pH 5.0 Urine Specific 1.023 [place] Urine Ketones TRACE A Urine Nitrite NEGATIVE Urine Bilirubin NEGATIVE Urine Urobilinogen 1+ H Urine Leukocyte 1+ H Esterase Urine Microscopic 8 H RBC Urine Microscopic 102 H WBC Urine Bacteria MANY A Urine Hemoglobin NEGATIVE Urine Glucose NEGATIVE Urine Total Protein 3+ H Sodium Level 139 136 Potassium Level 4.6 3.7 Chloride Level 104 107 Carbon Dioxide Level 24 20 L Anion Gap 11 9 Blood Urea Nitrogen 45 H 39 H Creatinine 3.02 H 2.41 H Est Glomerular Filtrat Rate mL/min Glucose Level 184 144 # Calcium Level 8.8 7.9 L Total Bilirubin 0.3 0.2 Direct Bilirubin 0.00 0.00 Indirect Bilirubin 0.3 0.2 Aspartate Amino 28 22 Transf (AST/SGOT) Alanine 20 22 Aminotransferase (AL T/SGPT) Alkaline Phosphatase 102 85 Troponin I < 0.012 Total Protein 6.6 6.1 Albumin 3.5 3.0 L Globulin 3.10 3.10 Albumin/Globulin 1.12 0.96 Ratio Lipase 95 Hemoglobin A1c 6.5 H Magnesium Level 1.7 Triglycerides Level 137 Cholesterol Level 166 LDL Cholesterol, 114 Calculated HDL Cholesterol 25 L Cholesterol/HDL 6.6 Ratio Thyroid Stimulating 4.640 Hormone (TSH) Bedside Glucose 114 126 Medications Medication Current Medications Clonidine (Catapres) 0.1 mg Q8 PO Last administered on 08/29/18at 06:22; Admin Dose 0.1 MG; Start 08/28/18 at 22:00 Metoprolol Tartrate (Lopressor) 50 mg QPM PO ; Start 08/29/18 at 21:00 Metoprolol Tartrate (Lopressor) 100 mg QAM PO Last administered on 08/29/18 10:19; Admin Dose 100 MG; Start 08/28/18 at 21:30 Hydralazine HCl (Apresoline) 20 mg Q6H PRN IV ELEVATED BLOOD PRESSURE Last ad ministered on 08/29/18at 03:36; Admin Dose 20 MG; Start 08/28/18 at 21:30 Hydralazine HCl (Apresoline) 10 mg Q4H PRN IV ELEVATED BLOOD PRESSURE; Start 08/28/18 at 21:30 IV Flush (NS 3 ml) 3 ml PER PROTOCOL IV ; Start 08/28/18 at 21:30 Ondansetron HCl (Zofran Inj) 4 mg Q6H PRN IV NAUSEA/VOMITING Last administered on 08/29/18 04:29; Admin Dose 4 MG; Start 08/28/18 at 21:30 Acetaminophen (Tylenol Tab) 650 mg Q6H PRN PO .PAIN 1-3 OR TEMP; Start 08/28/18 at 21:30 Docusate Sodium (Colace) 100 mg Q12H PRN PO .CONSTIPATION; Start 08/28/18 at 21:30 Bisacodyl (Dulcolax) 5 mg DAILY PRN PO .CONSTIPATION; Start 08/28/18 at 21:30 Ceftriaxone Sodium 50 ml @ 100 mls/hr Q24H IVPB ; Start 08/29/18 at 18:00 Clindamycin HCl (Cleocin) 300 mg Q8 PO Last administered on 08/29/18 06:22; Admin Dose 300 MG; Start 08/28/18 at 23:00 Amoxicillin (Amoxicillin) 500 mg BID PO Last administered on 08/29/18at 02:34; Admin Dose 500 MG; Start 08/28/18 at 23:00 Acyclovir (Zovirax) 200 mg BID PO Last administered on 08/29/18 10:19; Admin Dose 200 MG; Start 08/29/18 at 09:00 Ciprofloxacin HCl (Ciloxan 0.3% Oph) 2 drop Q6H RIGHT EYE Last administered on 08/29/18 10:20; Admin Dose 2 DROP; Start 08/29/18 at 00:00; Stop 09/04/18 at 23:59 Amlodipine Besylate (Norvasc) 10 mg DAILY PO Last administered on 08/29/18at 10:20; Admin Dose 10 MG; Start 08/29/18 at 04:00 Acetaminophen/ Hydrocodone Bitart ([place] (5/325)) 1 tab Q4H PRN PO .PAIN 4-6; Start 08/29/18 at 05:30 Diagnostic Test (Pha) (Accu-Chek) 1 ea 02 XX ; Start 08/30/18 at 02:00 Insulin Aspart (Novolog Insulin Pen) NOVOLOG *MILD* ALGORITHM WITH MEALS BEDTIME SC ; Start 08/29/18 at 08:00 Miscellaneous Information 1 ea NOTE XX ; Start 08/29/18 at 04:00 Glucose (Glutose) 15 gm Q15M PRN PO DECREASED GLUCOSE; Start 08/29/18 at 04:00 Glucose (Glutose) 22.5 gm Q15M PRN PO DECREASED GLUCOSE; Start 08/29/18 at 04:00 Dextrose (D50w Syringe) 25 ml Q15M PRN IV DECREASED GLUCOSE; Start 08/29/18 at 04:00 Dextrose (D50w Syringe) 50 ml Q15M PRN IV DECREASED GLUCOSE; Start 08/29/18 at 04:00 Glucagon (Glucagen) 1 mg Q15M PRN IM DECREASED GLUCOSE; Start 08/29/18 at 04:00 Glucose (Glutose) 15 gm Q15M PRN BUCCAL DECREASED GLUCOSE; Start 08/29/18 at 04:00 Morphine Sulfate (morphine) 2 mg Q4H PRN IV SEVERE PAIN LEVEL 7-10; Start 08/29/18 at 04:00 DONALD LEE MD Aug 29, 2018 14:20
--- NOTE | 2018-08-29 15:13 | CONS ---
DATE OF ADMISSION: 08/28/2018 DATE OF CONSULTATION: HISTORY OF PRESENT ILLNESS: The patient is an 83-year-old female with past medical history of hypert ension and diabetes. The patient was brought in after noticing right eye swelling that progressed ra ther rapidly and a rash on her face and right upper forehead. Also noted some headaches. 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 Right eye conjunctivitis, hypertensive urgency versus acute on chronic kidney disease, als o noted a UTI. History is obtained from the chart. Her primary doctor is Dr. Lyles in [place] . Denies previous history of kidney disease. Denies previous hospitalizations. Denies dysuria or h ematuria. No recent change in urine output. Admits to not eating good by mouth. Also noted to be o n an ARB as an outpatient. PAST MEDICAL HISTORY: As above. MEDICATIONS: From outpatient include: 1. Hydrochlorothiazide. 2. Metformin. 3. Metoprolol. 4. Benicar. 5. Clonidine. ALLERGIES: PATIENT HAS NO KNOWN ALLERGIES. SOCIAL HISTORY: Does not smoke, drink or do drugs. FAMILY HISTORY: No history of kidney disease. REVIEW OF SYSTEMS: A 14-point review of systems attempted and negative unless stated in exam. PHYSICAL EXAMINATION: VITAL SIGNS: Temperature 98.3, blood pressure 140/63 HEENT: Head is normocephalic. Pupils are equal and reactive to light. noted over right eye w ith periorbital swelling and redness. NECK: Supple. HEART: Regular rate and rhythm. LUNGS: Clear to auscultation anteriorly. ABDOMEN: Soft, nontender, nondistended. Bowel sounds present. LABORATORY EVALUATION: White count 6.3, hemoglobin 11and hematocrit 35. Sodium is 136, potassium 3. 7, BUN 39, creatinine 2.4. TSH is 4.6. UA is reviewed on microscopy. Chest x-ray was reviewed by shaan gomez radiologist. IMPRESSION: 1. Acute renal insufficiency, possible underlying chronic, nonoliguric. No active sediment known on urinalysis, 3+ proteinuria is noted, but difficult to differentiate in the setting of pyuria. Will start by checking urine studies, ultrasound of the kidneys to evaluate size showed no evidence of hyd ronephrosis or nephrolithiasis. There are small atrophic kidneys noted bilaterally. Continue treati ng underlying conditions and volume resuscitate. Avoid nephrotoxins as you are doing. Would hold th e ARB as you are doing. 2. Right orbital periorbital cellulitis, most likely shingles as predisposing cause, started on acyc lovir. ID is to follow up on the parietal prior lobe mass. Workup is underway with possibility of edyta herrera. Neurosurgery has been consulted for this right eye conjunctivitis, on drops. 3. Hypertensive urgency, blood pressure has come down nicely. Continue regular medications. Hold h ydrochlorothiazide and Cozaar as you are doing. 4. Urinary tract infection. Follow up cultures. Continue ceftriaxone. 5. Diabetes. Continue regular medications and insulin sliding scale. Dictated By: RAFI DANIEL/HAMILTON Conf#: [id number] DID#: [id number]
[2018-08-29] MEDS ORDERED: CEFTRIAXONE 1 GM/50 ML (PMX) 50 ML IVPB SCH (18:00)
[2018-08-29] MEDS: METOPROLOL 50 MG TAB PO SCH (22:00)
[2018-08-30] VITALS (10 sets, daily range): BP systolic 102–189; BP diastolic 54–86; PULSE 52–87; RESP 16–20
[2018-08-30] MEDS: ACCU-CHEK XX SCH (02:00)
[2018-08-30] MEDS: CIPROFLOXACIN 0.3% 2.5 ML OPH RIGHT EYE SCH ×3 (05:52→13:42)
[2018-08-30] MEDS ORDERED: ACYCLOVIR 200 MG CAP PO SCH (06:00)
--- NOTE | 2018-08-30 06:00 | CONS ---
Assessment/Plan Assessment/Plan Hospital Course (Demo Recall) 1) VZV to R V1 branch increase dose of acyclovir to 800mg TID pt does not recall getting the shingles vaccine 2) possible corie-orbital cellulitis the swelling could be due to the shingles but picture shows more redness than I appreciated today d/c amoxicillin and clindamycin and start augmentin at 500mg BID will order nasal swab to verify no MRSA 3) GNR in urine pt has no urinary symptoms, no fevers and no elevated WBC doubt she needs treatment for UTI d/c ceftriaxone to repeat u/a and urine cx 4) DM sugars here have been good and the Hgb A1C is not bad 5) HTN still elevated but somewhat better 6) ARF with likely CRI renal u/s shows some chronicity but no acute infection (no hydro or obstruction) Consultation Date/Type/Reason Admit Date/Time Aug 28, 2018 at 20:53 Date of Consultation: Aug 30, 2018 Type of Consult ID Date/Time of Note DATE: 08/30/18 TIME: 05:51 Hx of Present Illness spoke to pt and pain to R forehead with DRAKE for about a week and lesions to R forehead also noted around that time no F, C, NS but she feels cold the DRAKE has since resolved but she still has pain at the site of the lesions no N, V, D no SOB no dysuria or urine frequency Past Medical History DM, HTN Home Meds Reported Medications Hydrochlorothiazide* (Hydrochlorothiazide*) 12.5 Mg Tablet, 12.5 MG PO DAILY, #30 TAB 08/28/18 Metformin* (Glucophage*) 500 Mg Tab, 500 MG PO BID WITH MEALS, #90 TAB 08/28/18 Metoprolol Tartrate* (Lopressor*) 100 Mg Tablet, 100 MG PO QAM, #60 TAB 08/28/18 Metoprolol Tartrate* (Lopressor*) 50 Mg Tab, 50 MG PO QPM, #60 TAB 08/28/18 Olmesartan Medoxomil (Benicar) 40 Mg Tablet, 40 MG PO DAILY, #30 TAB 08/28/18 Clonidine Hcl* (Clonidine Hcl*) 0.1 Mg Tab, 0.1 MG PO Q8, TAB 08/28/18 Medications Current Medications Clonidine (Catapres) 0.1 mg Q8 PO Last administered on 08/29/18 21:59; Admin Dose 0.1 MG; Start 08/28/18 at 22:00 Metoprolol Tartrate (Lopressor) 50 mg QPM PO Last administered on 08/29/18 22:00; Admin Dose 50 MG; Start 08/29/18 at 21:00 Metoprolol Tartrate (Lopressor) 100 mg QAM PO Last administered on 08/29/18 10:19; Admin Dose 100 MG; Start 08/28/18 at 21:30 Hydralazine HCl (Apresoline) 20 mg Q6H PRN IV ELEVATED BLOOD PRESSURE Last administered on 08/29/18 03:36; Admin Dose 20 MG; Start 08/28/18 at 21:30 Hydralazine HCl (Apresoline) 10 mg Q4H PRN IV ELEVATED BLOOD PRESSURE; Start 08/28/18 at 21:30 IV Flush (NS 3 ml) 3 ml PER PROTOCOL IV ; Start 08/28/18 at 21:30 Ondansetron HCl (Zofran Inj) 4 mg Q6H PRN IV NAUSEA/VOMITING Last administered on 08/29/18 04:29; Admin Dose 4 MG; Start 08/28/18 at 21:30 Acetaminophen (Tylenol Tab) 650 mg Q6H PRN PO .PAIN 1-3 OR TEMP; Start 08/28/18 at 21:30 Docusate Sodium (Colace) 100 mg Q12H PRN PO .CONSTIPATION; Start 08/28/18 at 21:30 Bisacodyl (Dulcolax) 5 mg DAILY PRN PO .CONSTIPATION; Start 08/28/18 at 21:30 Ceftriaxone Sodium 50 ml @ 100 mls/hr Q24H IVPB Last administered on 08/29/18 17:57; Admin Dose 100 MLS/HR; Start 08/29/18 at 18:00 Clindamycin HCl (Cleocin) 300 mg Q8 PO Last administered on 08/29/18 22:10; Admin Dose 300 MG; Start 08/28/18 at 23:00 Amoxicillin (Amoxicillin) 500 mg BID PO Last administered on 08/29/18 22:10; Admin Dose 500 MG; Start 08/28/18 at 23:00 Acyclovir (Zovirax) 200 mg BID PO Last administered on 2/23/19at 21:58; Admin Dose 200 MG; Start 08/29/18 at 09:00 Ciprofloxacin HCl (Ciloxan 0.3% Oph) 2 drop Q6H RIGHT EYE Last administered on 08/29/18at 22:01; Admin Dose 2 DROP; Start 08/29/18 at 00:00; Stop 09/04/18 at 23 :59 Amlodipine Besylate (Norvasc) 10 mg DAILY PO Last administered on 08/29/18at 10:20; Admin Dose 10 MG; Start 08/29/18 at 04:00 Acetaminophen/ Hydrocodone Bitart ([place] (5/325)) 1 tab Q4H PRN PO .PAIN 4-6; Start 08/29/18 at 05:30 Diagnostic Test (Pha) (Accu-Chek) 1 ea 02 XX ; Start 08/30/18 at 02:00 Insulin Aspart (Novolog Insulin Pen) NOVOLOG *MILD* ALGORITHM WITH MEALS BEDTIME SC Last administered on 08/29/18at 18:24; Admin Dose 2 UNIT; Start 08/29/18 at 08:00 Miscellaneous Information 1 ea NOTE XX ; Start 08/29/18 at 04:00 Glucose (Glutose) 15 gm Q15M PRN PO DECREASED GLUCOSE; Start 08/29/18 at 04:00 Glucose (Glutose) 22.5 gm Q15M PRN PO DECREASED GLUCOSE; Start 08/29/18 at 04:00 Dextrose (D50w Syringe) 25 ml Q15M PRN IV DECREASED GLUCOSE; Start 08/29/18 at 04:00 Dextrose (D50w Syringe) 50 ml Q15M PRN IV DECREASED GLUCOSE; Start 08/29/18 at 04:00 Glucagon (Glucagen) 1 mg Q15M PRN IM DECREASED GLUCOSE; Start 08/29/18 at 04:00 Glucose (Glutose) 15 gm Q15M PRN BUCCAL DECREASED GLUCOSE; Start 08/29/18 at 04:00 Morphine Sulfate (morphine) 2 mg Q4H PRN IV SEVERE PAIN LEVEL 7-10; Start 08/29/18 at 04:00 Allergies: Coded Allergies: No Known Allergy (Unverified , 08/28/18) Social History Alcohol Use: none Smoking Status: Never smoker Drug Use: none Exam/Review of Systems Exam Vitals Vital Signs Date Temp Pulse Resp B/P (MAP) Pulse Ox O2 O2 Flow FiO2 Time Delivery Rate 2/24/19 60 04:00 08/30/18 98.3 16 189/86 98 04:00 (120) 08/28/18 Room Air 22:25 Intake and Output 08/29/18 08/29/18 08/30/18 1515:00 23:00 07:00 IntakeIntake Total 450 ml BalanceBalance 450 ml Constitutional: alert Head: other (cluster of blisters to R forehead and swelling around eyes for R>L) Eyes: nl sclera ENMT: mucosa pink and moist Respiratory: clear to auscultation Cardiovascular: regular rate and rhythm Gastrointestinal: soft, other (some tenderness to lower abd and L side) Musculoskeletal: nl extremities to inspection Neurological: other (moves all extremities) Results Result Diagram: 08/29/1852908/29/18529 Results 24hrs Laboratory Tests Test 08/29/18 07:58 08/29/18 12:01 08/29/18 18:17 08/29/18 21:57 Bedside Glucose 114 126 184 106 Medications Medication Current Medications Clonidine (Catapres) 0.1 mg Q8 PO Last administered on 08/29/18at 21:59; Admin Dose 0.1 MG; Start 08/28/18 at 22:00 Metoprolol Tartrate (Lopressor) 50 mg QPM PO Last administered on 08/29/18at 22:00; Admin Dose 50 MG; Start 08/29/18 at 21:00 Metoprolol Tartrate (Lopressor) 100 mg QAM PO Last administered on 08/29/18at 10:19; Admin Dose 100 MG; Start 08/28/18 at 21:30 Hydralazine HCl (Apresoline) 20 mg Q6H PRN IV ELEVATED BLOOD PRESSURE Last admi nistered on 08/29/18at 03:36; Admin Dose 20 MG; Start 08/28/18 at 21:30 Hydralazine HCl (Apresoline) 10 mg Q4H PRN IV ELEVATED BLOOD PRESSURE; Start 08/28/18 at 21:30 IV Flush (NS 3 ml) 3 ml PER PROTOCOL IV ; Start 08/28/18 at 21:30 Ondansetron HCl (Zofran Inj) 4 mg Q6H PRN IV NAUSEA/VOMITING Last administered on 08/29/18at 04:29; Admin Dose 4 MG; Start 08/28/18 at 21:30 Acetaminophen (Tylenol Tab) 650 mg Q6H PRN PO .PAIN 1-3 OR TEMP; Start 08/28/18 at 21:30 Docusate Sodium (Colace) 100 mg Q12H PRN PO .CONSTIPATION; Start 08/28/18 at 21:30 Bisacodyl (Dulcolax) 5 mg DAILY PRN PO .CONSTIPATION; Start 08/28/18 at 21:30 Ceftriaxone Sodium 50 ml @ 100 mls/hr Q24H IVPB Last administered on 08/29/18at 17:57; Admin Dose 100 MLS/HR; Start 08/29/18 at 18:00 Clindamycin HCl (Cleocin) 300 mg Q8 PO Last administered on 08/29/18at 22:10; Admin Dose 300 MG; Start 08/28/18 at 23:00 Amoxicillin (Amoxicillin) 500 mg BID PO Last administered on 08/29/18at 22:10; Admin Dose 500 MG; Start 08/28/18 at 23:00 Acyclovir (Zovirax) 200 mg BID PO Last administered on 08/29/18at 21:58; Admin Dose 200 MG; Start 08/29/18 at 09:00 Ciprofloxacin HCl (Ciloxan 0.3% Oph) 2 drop Q6H RIGHT EYE Last administered on 08/29/18at 22:01; Admin Dose 2 DROP; Start 08/29/18 at 00:00; Stop 09/04/18 at 23:59 Amlodipine Besylate (Norvasc) 10 mg DAILY PO Last administered on 08/29/18at 10:20; Admin Dose 10 MG; Start 08/29/18 at 04:00 Acetaminophen/ Hydrocodone Bitart ([place] (5/325)) 1 tab Q4H PRN PO .PAIN 4-6; Start 08/29/18 at 05:30 Diagnostic Test (Pha) (Accu-Chek) 1 ea 02 XX ; Start 08/30/18 at 02:00 Insulin Aspart (Novolog Insulin Pen) NOVOLOG *MILD* ALGORITHM WITH MEALS BEDTIME SC Last administered on 08/29/18at 18:24; Admin Dose 2 UNIT; Start 08/29/18 at 08:00 Miscellaneous Information 1 ea NOTE XX ; Start 08/29/18 at 04:00 Glucose (Glutose) 15 gm Q15M PRN PO DECREASED GLUCOSE; Start 08/29/18 at 04:00 Glucose (Glutose) 22.5 gm Q15M PRN PO DECREASED GLUCOSE; Start 08/29/18 at 04:00 Dextrose (D50w Syringe) 25 ml Q15M PRN IV DECREASED GLUCOSE; Start 08/29/18 at 04:00 Dextrose (D50w Syringe) 50 ml Q15M PRN IV DECREASED GLUCOSE; Start 08/29/18 at 04:00 Glucagon (Glucagen) 1 mg Q15M PRN IM DECREASED GLUCOSE; Start 08/29/18 at 04:00 Glucose (Glutose) 15 gm Q15M PRN BUCCAL DECREASED GLUCOSE; Start 08/29/18 at 04:00 Morphine Sulfate (morphine) 2 mg Q4H PRN IV SEVERE PAIN LEVEL 7-10; Start 08/29/18 at 04:00 ZELDA CANNON MD Aug 30, 2018 06:00
[2018-08-30] MEDS: hydrALAzine 20 MG INJ IV PRN (06:05)
[2018-08-30] MEDS: ACYCLOVIR 800 MG TAB PO SCH ×3 (06:40→21:12)
[2018-08-30] MEDS: INSULIN ASPART [NOVOLOG] 3 ML PEN SC SCH ×4 (07:54→21:00)
--- NOTE | 2018-08-30 09:13 | CONS ---
Consult Date/Type/Reason Admit Date/Time Aug 28, 2018 at 20:53 Initial Consult Date 08/30/18 Date/Time of Note DATE: 08/30/18 TIME: 09:07 Subjective The patient is an 83-year-old female with past medical history of hypertension and diabetes. The patient was brought in after noticing right eye swelling that progressed rather rapidly and a rash on her face and right upper forehead. Also noted some headaches. 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 Right eye conjunctivitis, hypertensive urgency versus acute on chronic kidney disease, also noted a UTI. History is obtained from the chart. Her primary doctor is Dr. Lyles in [place]. Denies previous history of kidney disease. Denies dysuria or hematuria. No recent change in urine output. Admits to not eating good by mouth. Also noted to be on an ARB as an outpatient. continues good uo since admission. noted eye pain and given norco noted elevated bp and given hydralazine. PHYSICAL EXAMINATION: HEENT: Head is normocephalic. Pupils are equal and reactive to light. rash noted over right eye with periorbital swelling and redness. NECK: Supple. HEART: Regular rate and rhythm. LUNGS: Clear to auscultation anteriorly. ABDOMEN: Soft, nontender, nondistended. Bowel sounds present. Objective Vitals Vital Signs Date Temp Pulse Resp B/P (MAP) Pulse Ox O2 O2 Flow FiO2 Time Delivery Rate 08/30/18 57 08:57 08/30/18 98.6 20 127/59 98 07:54 (81) 08/28/18 Room Air 22:25 Intake and Output 08/29/18 08/29/18 08/30/18 1515:00 23:00 07:00 IntakeIntake Total 450 ml 400 ml BalanceBalance 450 ml 400 ml Results/Medications Result Diagram: 08/29/18 0530 08/30/18 0737 Results 24 hrs Laboratory Tests Test 08/29/18 12:01 08/29/18 18:17 08/29/18 21:57 08/30/18 07:37 Bedside Glucose 126 184 106 Sodium Level 138 Potassium Level 3.6 Chloride Level 107 Carbon Dioxide Level 18 L Anion Gap 13 Blood Urea Nitrogen 48 H Creatinine 2.78 H Est Glomerular Filtrat Rate mL/min Glucose Level 113 Calcium Level 8.0 L Test 08/30/18 07:50 Bedside Glucose 126 Home Meds Reported Medications Hydrochlorothiazide* (Hydrochlorothiazide*) 12.5 Mg Tablet, 12.5 MG PO DAILY, #30 TAB 08/28/18 Metformin* (Glucophage*) 500 Mg Tab, 500 MG PO BID WITH MEALS, #90 TAB 08/28/18 Metoprolol Tartrate* (Lopressor*) 100 Mg Tablet, 100 MG PO QAM, #60 TAB 08/28/18 Metoprolol Tartrate* (Lopressor*) 50 Mg Tab, 50 MG PO QPM, #60 TAB 08/28/18 Olmesartan Medoxomil (Benicar) 40 Mg Tablet, 40 MG PO DAILY, #30 TAB 08/28/18 Clonidine Hcl* (Clonidine Hcl*) 0.1 Mg Tab, 0.1 MG PO Q8, TAB 08/28/18 Medications Current Medications Clonidine (Catapres) 0.1 mg Q8 PO Last administered on 08/30/18at 05:51; Admin Dose 0.1 MG; Start 08/28/18 at 22:00 Metoprolol Tartrate (Lopressor) 50 mg QPM PO Last administered on 08/29/18at 22:00; Admin Dose 50 MG; Start 08/29/18 at 21:00 Metoprolol Tartrate (Lopressor) 100 mg QAM PO Last administered on 08/29/18at 10:19; Admin Dose 100 MG; Start 08/28/18 at 21:30 Hydralazine HCl (Apresoline) 20 mg Q6H PRN IV ELEVATED BLOOD PRESSURE Last administered on 08/29/18at 03:36; Admin Dose 20 MG; Start 08/28/18 at 21:30 Hydralazine HCl (Apresoline) 10 mg Q4H PRN IV ELEVATED BLOOD PRESSURE Last administered on 08/30/18at 06:05; Admin Dose 10 MG; Start 08/28/18 at 21:30 IV Flush (NS 3 ml) 3 ml PER PROTOCOL IV ; Start 08/28/18 at 21:30 Ondansetron HCl (Zofran Inj) 4 mg Q6H PRN IV NAUSEA/VOMITING Last administered on 08/29/18at 04:29; Admin Dose 4 MG; Start 08/28/18 at 21:30 Acetaminophen (Tylenol Tab) 650 mg Q6H PRN PO .PAIN 1-3 OR TEMP; Start 08/28/18 at 21:30 Docusate Sodium (Colace) 100 mg Q12H PRN PO .CONSTIPATION; Start 08/28/18 at 21:30 Bisacodyl (Dulcolax) 5 mg DAILY PRN PO .CONSTIPATION; Start 08/28/18 at 21:30 Ciprofloxacin HCl (Ciloxan 0.3% Oph) 2 drop Q6H RIGHT EYE Last administered on 08/30/18at 05:52; Admin Dose 2 DROP; Start 08/29/18 at 00:00; Stop 09/04/18 at 23:59 Amlodipine Besylate (Norvasc) 10 mg DAILY PO Last administered on 08/29/18at 10:20; Admin Dose 10 MG; Start 08/29/18 at 04:00 Acetaminophen/ Hydrocodone Bitart ([place] (5/325)) 1 tab Q4H PRN PO .PAIN 4-6 Last administered on 08/30/18at 06:03; Admin Dose 1 TAB; Start 08/29/18 at 05:30 Diagnostic Test (Pha) (Accu-Chek) 1 ea 02 XX ; Start 08/30/18 at 02:00 Insulin Aspart (Novolog Insulin Pen) NOVOLOG *MILD* ALGORITHM WITH MEALS BEDTIME SC Last administered on 08/29/18at 18:24; Admin Dose 2 UNIT; Start 08/29/18 at 08:00 Miscellaneous Information 1 ea NOTE XX ; Start 08/29/18 at 04:00 Glucose (Glutose) 15 gm Q15M PRN PO DECREASED GLUCOSE; Start 08/29/18 at 04:00 Glucose (Glutose) 22.5 gm Q15M PRN PO DECREASED GLUCOSE; Start 08/29/18 at 04:00 Dextrose (D50w Syringe) 25 ml Q15M PRN IV DECREASED GLUCOSE; Start 08/29/18 at 04:00 Dextrose (D50w Syringe) 50 ml Q15M PRN IV DECREASED GLUCOSE; Start 08/29/18 at 04:00 Glucagon (Glucagen) 1 mg Q15M PRN IM DECREASED GLUCOSE; Start 08/29/18 at 04:00 Glucose (Glutose) 15 gm Q15M PRN BUCCAL DECREASED GLUCOSE; Start 08/29/18 at 04:00 Morphine Sulfate (morphine) 2 mg Q4H PRN IV SEVERE PAIN LEVEL 7-10; Start 08/29/18 at 04:00 Amoxicillin/ Clavulanate Potassium (Augmentin) 500 mg BID PO ; Start 08/30/18 at 09:00 Acyclovir (Zovirax) 800 mg Q8 PO Last administered on 08/30/18at 06:40; Admin Dose 800 MG; Start 08/30/18 at 06:00 Assessment/Plan Hospital Course (Demo Recall) 1. Acute renal insufficiency, possible underlying chronic, nonoliguric. No active sediment known on urinalysis, 3+ proteinuria is noted, but difficult to differentiate in the setting of pyuria. Will start by checking urine studies, ultrasound of the kidneys to evaluate size showed no evidence of hydronephrosis or nephrolithiasis and suggestive of ckd. There are small atrophic kidneys noted bilaterally. Continue treating underlying conditions and volume resuscitate. Avoid nephrotoxins as you are doing. Would hold the ARB as you are doing. - mild azotemia today of unclear significance - fu urine studies. 2. Right orbital periorbital cellulitis, most likely shingles as predisposing cause, started on acyclovir. ID is to follow up on the 3. Hypertensive urgency, blood pressure has come down nicely. Continue regular medications. Hold hydrochlorothiazide and Cozaar as you are doing. 4. Urinary tract infection. noted ecoli. consider change to keflex. 5. Diabetes. Continue regular medications and insulin sliding scale. hold metformin as you are doing. 6. parietal prior lobe mass. Workup is underway with possibility of bleed. Neurosurgery has been consulted 7. right eye conjunctivitis, on drops. RAFI LORENZO MD Aug 30, 2018 09:13
[2018-08-30] MEDS: AMLODIPINE 10 MG TAB PO SCH (09:22)
[2018-08-30] MEDS: METOPROLOL 100 MG TAB PO SCH (09:22)
[2018-08-30] MEDS: AMOXICILLIN/CLAV 500 MG TAB PO SCH ×2 (09:45→21:12)
[2018-08-30] MEDS: ONDANSETRON 4 MG INJ IV PRN (13:41)
--- NOTE | 2018-08-30 14:23 | PN ---
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 Suspect in the coming 1-2 days Result Diagram: 08/29/18 0530 08/30/18 0737 Results 24hrs Laboratory Tests Test 08/29/18 18:17 08/29/18 21:57 08/30/18 07:37 08/30/18 07:50 Bedside Glucose 184 106 126 Sodium Level 138 Potassium Level 3.6 Chloride Level 107 Carbon Dioxide Level 18 L Anion Gap 13 Blood Urea Nitrogen 48 H Creatinine 2.78 H Est Glomerular Filtrat Rate mL/min Glucose Level 113 Calcium Level 8.0 L Test 08/30/18 12:33 Bedside Glucose 128 Subjective 24 Hr Interval Summary Free Text/Dictation Continues to improve Less erythema and edema No visual disturbance Exam/Review of Systems Exam Vitals Vital Signs Date Temp Pulse Resp B/P (MAP) Pulse Ox O2 O2 Flow FiO2 Time Delivery Rate 08/30/18 98.0 57 18 154/71 98 12:47 (98) 08/28/18 Room Air 22:25 Intake and Output 08/29/18 08/29/18 08/30/18 1515:00 23:00 07:00 IntakeIntake Total 450 ml 400 ml BalanceBalance 450 ml 400 ml Exam Vesicular lesions in V1 distribution of R face Periorbital edema is improving Though eye is swollen shut with crusting I had to pry it open, conjunctiva looks fine, no exudate. Visual acuity is javier ssly in tact Results Results 24hrs Laboratory Tests Test 08/29/18 18:17 08/29/18 21:57 08/30/18 07:37 08/30/18 07:50 Bedside Glucose 184 106 126 Sodium Level 138 Potassium Level 3.6 Chloride Level 107 Carbon Dioxide Level 18 L Anion Gap 13 Blood Urea Nitrogen 48 H Creatinine 2.78 H Est Glomerular Filtrat Rate mL/min Glucose Level 113 Calcium Level 8.0 L Test 08/30/18 12:33 Bedside Glucose 128 Medications Medication Current Medications Clonidine (Catapres) 0.1 mg Q8 PO Last administered on 08/30/18 13:42; Admin Dose 0.1 MG; Start 08/28/18 at 22:00 Metoprolol Tartrate (Lopressor) 50 mg QPM PO Last administered on 08/29/18at 22:00; Admin Dose 50 MG; Start 08/29/18 at 21:00 Metoprolol Tartrate (Lopressor) 100 mg QAM PO Last administered on 08/30/18 09:22; Admin Dose 100 MG; Start 08/28/18 at 21:30 Hydralazine HCl (Apresoline) 20 mg Q6H PRN IV ELEVATED BLOOD PRESSURE Last administered on 08/29/18at 03:36; Admin Dose 20 MG; Start 08/28/18 at 21:30 Hydralazine HCl (Apresoline) 10 mg Q4H PRN IV ELEVATED BLOOD PRESSURE Last administered on 08/30/18at 06:05; Admin Dose 10 MG; Start 08/28/18 at 21:30 IV Flush (NS 3 ml) 3 ml PER PROTOCOL IV ; Start 08/28/18 at 21:30 Ondansetron HCl (Zofran Inj) 4 mg Q6H PRN IV NAUSEA/VOMITING Last administered on 08/30/18at 13:41; Admin Dose 4 MG; Start 08/28/18 at 21:30 Acetaminophen (Tylenol Tab) 650 mg Q6H PRN PO .PAIN 1-3 OR TEMP; Start 08/28/18 at 21:30 Docusate Sodium (Colace) 100 mg Q12H PRN PO .CONSTIPATION; Start 08/28/18 at 21:30 Bisacodyl (Dulcolax) 5 mg DAILY PRN PO .CONSTIPATION; Start 08/28/18 at 21:30 Ciprofloxacin HCl (Ciloxan 0.3% Oph) 2 drop Q6H RIGHT EYE Last administered on 08/30/18at 13:42; Admin Dose 2 DROP; Start 08/29/18 at 00:00; Stop 09/04/18 at 23:59 Amlodipine Besylate (Norvasc) 10 mg DAILY PO Last administered on 08/30/18 09:22; Admin Dose 10 MG; Start 08/29/18 at 04:00 Acetaminophen/ Hydrocodone Bitart ([place] (5/325)) 1 tab Q4H PRN PO .PAIN 4-6 Last administered on 08/30/18at 06:03; Admin Dose 1 TAB; Start 08/29/18 at 05:30 Diagnostic Test (Pha) (Accu-Chek) 1 ea 02 XX ; Start 08/30/18 at 02:00 Insulin Aspart (Novolog Insulin Pen) NOVOLOG *MILD* ALGORITHM WITH MEALS BEDTIME SC Last administered on 08/29/18at 18:24; Admin Dose 2 UNIT; Start 08/29/18 at 08:00 Miscellaneous Information 1 ea NOTE XX ; Start 08/29/18 at 04:00 Glucose (Glutose) 15 gm Q15M PRN PO DECREASED GLUCOSE; Start 08/29/18 at 04:00 Glucose (Glutose) 22.5 gm Q15M PRN PO DECREASED GLUCOSE; Start 08/29/18 at 04:00 Dextrose (D50w Syringe) 25 ml Q15M PRN IV DECREASED GLUCOSE; Start 08/29/18 at 04:00 Dextrose (D50w Syringe) 50 ml Q15M PRN IV DECREASED GLUCOSE; Start 08/29/18 at 04:00 Glucagon (Glucagen) 1 mg Q15M PRN IM DECREASED GLUCOSE; Start 08/29/18 at 04:00 Glucose (Glutose) 15 gm Q15M PRN BUCCAL DECREASED GLUCOSE; Start 08/29/18 at 04:00 Morphine Sulfate (morphine) 2 mg Q4H PRN IV SEVERE PAIN LEVEL 7-10; Start 08/29/18 at 04:00 Amoxicillin/ Clavulanate Potassium (Augmentin) 500 mg BID PO Last administered on 08/30/18at 09:45; Admin Dose 500 MG; Start 08/30/18 at 09:00 Acyclovir (Zovirax) 800 mg Q8 PO Last administered on 08/30/18at 13:50; Admin Dose 800 MG; Start 08/30/18 at 06:00 DONALD LEE MD Aug 30, 2018 14:23
[2018-08-30] MEDS: METOPROLOL 50 MG TAB PO SCH (21:12)
[2018-08-31] VITALS (13 sets, daily range): BP systolic 118–177; BP diastolic 58–81; PULSE 51–67; RESP 16–18
[2018-08-31] MEDS: ACCU-CHEK XX SCH (02:00)
[2018-08-31] MEDS: ACYCLOVIR 800 MG TAB PO SCH ×3 (06:25→22:36)
[2018-08-31] MEDS: CIPROFLOXACIN 0.3% 2.5 ML OPH RIGHT EYE SCH ×5 (06:26→22:37)
[2018-08-31] MEDS: hydrALAzine 20 MG INJ IV PRN (06:26)
--- NOTE | 2018-08-31 07:16 | CONS ---
Assessment/Plan Assessment/Plan Hospital Course (Demo Recall) 1) VZV to R V1 branch increase dose of acyclovir to 800mg TID pt does not recall getting the shingles vaccine 08/31 - continue with acyclovir at 800mg TID but if creatinine further increases to reduce dose to 800mg BID some blisters are weeping with some crusting, will cx site for bacterial culture 2) possible corie-orbital cellulitis the swelling could be due to the shingles but picture shows more redness than I appreciated today d/c amoxicillin and clindamycin and start augmentin at 500mg BID will order nasal swab to verify no MRSA 08/31 - nasal is NGTD for MRSA get culture from open wounds on forehead/eyelid d/c augmentin and start keflex 3) GNR in urine (e.coli) pt has no urinary symptoms, no fevers and no elevated WBC doubt she needs treatment for UTI d/c ceftriaxone to repeat u/a and urine cx 08/31 - pt has tenderness over bladder and urine cx has e.coli resistant to augmentin d/c augmentin and start keflex 4) DM sugars here have been good and the Hgb A1C is not bad 5) HTN still elevated but somewhat better 6) ARF with likely CRI renal u/s shows some chronicity but no acute infection (no hydro or obstruction) Consultation Date/Type/Reason Admit Date/Time Aug 28, 2018 at 20:53 Initial Consult Date 08/30/18 Type of Consult ID Date/Time of Note DATE: 08/31/18 TIME: 07:00 24 HR Interval Summary Free Text/Dictation pain over R forehead is controlled by the pain meds no N, V, D no abd pain Exam/Review of Systems Exam Vitals Vital Signs Date Temp Pulse Resp B/P (MAP) Pulse Ox O2 O2 Flow FiO2 Time Delivery Rate 08/31/18 97.9 61 18 177/81 99 04:50 (113) 08/28/18 Room Air 22:25 Intake and Output 08/30/18 08/30/18 08/31/18 1515:00 23:00 07:00 IntakeIntake Total 650 ml 550 ml BalanceBalance 650 ml 550 ml Constitutional: alert, oriented Head: other (blisters are weeping and some are crusting other blisters have not opened, less overall swelling though) Eyes: other (pt able to open eye on R) ENMT: mucosa pink and moist Respiratory: clear to auscultation Cardiovascular: regular rate and rhythm Gastrointestinal: soft, other (some tenderness over the bladder only) Extremities: other (no edema) Results Result Diagram: 08/31/18 0510 08/30/18 0737 Results 24hrs Laboratory Tests Test 08/30/18 07:37 08/30/18 07:50 08/30/18 12:33 08/30/18 14:00 Sodium Level 138 Potassium Level 3.6 Chloride Level 107 Carbon Dioxide Level 18 L Anion Gap 13 Blood Urea Nitrogen 48 H Creatinine 2.78 H Est Glomerular Filtrat Rate mL/min Glucose Level 113 Calcium Level 8.0 L Bedside Glucose 126 128 Urine Color YELLOW Urine Clarity CLOUDY A Urine pH 5.0 Urine Specific 1.016 [place] Urine Ketones NEGATIVE Urine Nitrite NEGATIVE Urine Bilirubin NEGATIVE Urine Urobilinogen NEGATIVE Urine Leukocyte 2+ H Esterase Urine Microscopic 10 H RBC Urine Microscopic > 182 H WBC Urine Squamous MANY A Epithelial Cells Urine Bacteria FEW A Urine Mucus FEW A Urine Hemoglobin NEGATIVE Urine Glucose 1+ H Urine Total Protein 2+ H Test 08/30/18 17:38 08/30/18 21:10 08/31/18 05:10 Bedside Glucose 153 139 White Blood Count 8.0 # Red Blood Count 4.58 Hemoglobin 11.9 L Hematocrit 37.1 Mean Corpuscular 81.0 L Volume Mean Corpuscular 26.0 L Hemoglobin Mean Corpuscular 32.1 Hemoglobin Concent Red Cell 13.6 Distribution Width Platelet Count 179 # Mean Platelet Volume 10.2 Immature 0.600 H Granulocytes % Neutrophils % Lymphocytes % Monocytes % Eosinophils % Basophils % Nucleated Red Blood 0.0 Cells % Immature 0.050 H Granulocytes # Neutrophils # Lymphocytes # Monocytes # Eosinophils # Basophils # Nucleated Red Blood Cells # Medications Medication Current Medications Clonidine (Catapres) 0.1 mg Q8 PO Last administered on 08/31/18at 06:25; Admin Dose 0.1 MG; Start 08/28/18 at 22:00 Metoprolol Tartrate (Lopressor) 50 mg QPM PO Last administered on 08/30/18at 21:12; Admin Dose 50 MG; Start 08/29/18 at 21:00 Metoprolol Tartrate (Lopressor) 100 mg QAM PO Last administered on 08/30/18at 09:22; Admin Dose 100 MG; Start 08/28/18 at 21:30 Hydralazine HCl (Apresoline) 20 mg Q6H PRN IV ELEVATED BLOOD PRESSURE Last administered on 08/29/18at 03:36; Admin Dose 20 MG; Start 08/28/18 at 21:30 Hydralazine HCl (Apresoline) 10 mg Q4H PRN IV ELEVATED BLOOD PRESSURE Last administered on 08/31/18 06:26; Admin Dose 10 MG; Start 08/28/18 at 21:30 IV Flush (NS 3 ml) 3 ml PER PROTOCOL IV ; Start 08/28/18 at 21:30 Ondansetron HCl (Zofran Inj) 4 mg Q6H PRN IV NAUSEA/VOMITING Last administered on 08/30/18 13:41; Admin Dose 4 MG; Start 08/28/18 at 21:30 Acetaminophen (Tylenol Tab) 650 mg Q6H PRN PO .PAIN 1-3 OR TEMP; Start 08/28/18 at 21:30 Docusate Sodium (Colace) 100 mg Q12H PRN PO .CONSTIPATION; Start 08/28/18 at 21:30 Bisacodyl (Dulcolax) 5 mg DAILY PRN PO .CONSTIPATION; Start 08/28/18 at 21:30 Ciprofloxacin HCl (Ciloxan 0.3% Oph) 2 drop Q6H RIGHT EYE Last administered on 08/31/18 06:26; Admin Dose 2 DROP; Start 08/29/18 at 00:00; Stop 09/04/18 at 23:59 Amlodipine Besylate (Norvasc) 10 mg DAILY PO Last administered on 08/30/18 09:22; Admin Dose 10 MG; Start 08/29/18 at 04:00 Acetaminophen/ Hydrocodone Bitart ([place] (5/325)) 1 tab Q4H PRN PO .PAIN 4-6 Last administered on 08/30/18 06:03; Admin Dose 1 TAB; Start 08/29/18 at 05:30 Diagnostic Test (Pha) (Accu-Chek) 1 ea 02 XX ; Start 08/30/18 at 02:00 Insulin Aspart (Novolog Insulin Pen) NOVOLOG *MILD* ALGORITHM WITH MEALS BEDTIME SC Last administered on 08/30/18at 17:55; Admin Dose 1 UNIT; Start 08/29/18 at 08:00 Miscellaneous Information 1 ea NOTE XX ; Start 08/29/18 at 04:00 Glucose (Glutose) 15 gm Q15M PRN PO DECREASED GLUCOSE; Start 08/29/18 at 04:00 Glucose (Glutose) 22.5 gm Q15M PRN PO DECREASED GLUCOSE; Start 08/29/18 at 04:00 Dextrose (D50w Syringe) 25 ml Q15M PRN IV DECREASED GLUCOSE; Start 08/29/18 at 04:00 Dextrose (D50w Syringe) 50 ml Q15M PRN IV DECREASED GLUCOSE; Start 08/29/18 at 04:00 Glucagon (Glucagen) 1 mg Q15M PRN IM DECREASED GLUCOSE; Start 08/29/18 at 04:00 Glucose (Glutose) 15 gm Q15M PRN BUCCAL DECREASED GLUCOSE; Start 08/29/18 at 04:00 Morphine Sulfate (morphine) 2 mg Q4H PRN IV SEVERE PAIN LEVEL 7-10; Start 08/29/18 at 04:00 Amoxicillin/ Clavulanate Potassium (Augmentin) 500 mg BID PO Last administered on 08/30/18at 21:12; Admin Dose 500 MG; Start 08/30/18 at 09:00 Acyclovir (Zovirax) 800 mg Q8 PO Last administered on 08/31/18at 06:25; Admin Dose 800 MG; Start 08/30/18 at 06:00 ZELDA CANNON MD Aug 31, 2018 07:10
[2018-08-31] MEDS: INSULIN ASPART [NOVOLOG] 3 ML PEN SC SCH ×4 (08:00→20:48)
[2018-08-31] MEDS: CEPHALEXIN 500 MG CAP PO SCH ×2 (08:55→20:47)
[2018-08-31] MEDS: AMLODIPINE 10 MG TAB PO SCH (08:56)
[2018-08-31] MEDS: METOPROLOL 100 MG TAB PO SCH (08:56)
--- NOTE | 2018-08-31 15:21 | PN ---
DATE: 08/31/2018 SUBJECTIVE: The patient is stable, no events overnight. No fevers, chills, nausea, vomiting. OBJECTIVE: VITAL SIGNS: Blood pressure is 118/58, pulse 58, respirations 18, temperature 98.0. HEENT: Head is normocephalic. NECK: Supple. HEART: Regular rate. LUNGS: Show diminished breath sounds at the base. ABDOMEN: Soft, nontender to palpation without rebound or guarding. EXTREMITIES: Negative for clubbing, cyanosis, no edema. DERMATOLOGIC: No rashes. MUSCULOSKELETAL: No joint effusion. NEUROLOGIC: No change in exam. MEDICATIONS: Reviewed. LABORATORY DATA: Has been reviewed. The patient has sodium 137, potassium 3.7, BUN 56, creatinine 3 .19. White count 8.0, hemoglobin 11.9, platelet count is 179. ASSESSMENT AND PLAN: 1. Nonoliguric acute kidney injury on top of chronic kidney disease with unknown baseline creatinine . The patient's renal ultrasound shows increased echogenicity and small kidneys consistent with milieu manager christine kidney disease. The patient also noted to have proteinuria on urinalysis. Etiology of current a cute kidney injury is unclear, possibly due to hemodynamics, questionable tubular injury. At this po int, would continue current treatment plan, supportive care, renally dose all meds, no immediate need for renal replacement therapy. 2. Chronic kidney disease with proteinuria. Etiology may be secondary to hypertensive nephroscleros is. Plan is to quantify patient's proteinuria. We will continue to treat acute kidney injury as sta nicolás above. Would otherwise continue disease factor modification with good blood pressure control. 3. Anemia. Continue to monitor hemoglobin and hematocrit levels. 4. Mineral bone disorder, monitor calcium and phosphorus levels. 5. Right periorbital cellulitis. Continue current antiviral therapy. Follow up infectious disease. 6. Hypertension. Blood pressure is stable. We will continue to hold ARB, hydrochlorothiazide in se tting of acute kidney injury. 7. Urinary tract infection, continue current antibiotic regimen. 8. Diabetes. Continue current insulin regimen. 9. Right eye conjunctivitis. Continue current treatment plan. Dictated By: MOE GAMEZ/NTS Conf#: [id number] DID#: [id number] CC: JAX ANGEL MD;*EndCC*
--- NOTE | 2018-08-31 17:24 | PN ---
Date/Time of Note Date/Time of Note DATE: 08/31/18 TIME: 17:23 Assessment/Plan VTE Prophylaxis Risk score (from Ns)>0 risk: 3 SCD applied (from [facility]): Yes Pharmacological prophylaxis: NA/contraindicated Pharm contraindication: other Lines/Catheters IV Catheter Type (from [facility] Saline Lock Urinary Cath still in place: No Assessment/Plan Hospital Course 83 yo female with CKD, hypertension presents with shingles of the face and periorbital cellulitis, found to have incidental meningioma and severe hypertension Shingles with periorbital cellutitis: - Continues to improve, therapies working - Continue acylovir and augmentin per Dr Mouna Cotton gtt Severe hypertension: - Much improved - Continue home regimen of amlodipine, clonidine 0.1 q8h, metoprolol KERRY on CKD - Unknown baseline creatinine - Hold ARB, trend BP Incidental meningioma -Outpatient workup -Asymptomatic Prophylaxis: SCDs Discharge to self care when we are convinced her infection is improving and her eye is safe. Suspect in the coming 1-2 days Result Diagram: 08/31/18 0510 08/31/18 0510 Results 24hrs Laboratory Tests Test 08/30/18 17:38 08/30/18 21:10 08/31/18 05:10 08/31/18 08:53 Bedside Glucose 153 139 105 White Blood Count 8.0 # Red Blood Count 4.58 Hemoglobin 11.9 L Hematocrit 37.1 Mean Corpuscular 81.0 L Volume Mean Corpuscular 26.0 L Hemoglobin Mean Corpuscular 32.1 Hemoglobin Concent Red Cell 13.6 Distribution Width Platelet Count 179 # Mean Platelet Volume 10.2 Immature 0.600 H Granulocytes % Neutrophils % Segmented 64 Neutrophils % (Manual) Band Neutrophils % 1 (Manual) Lymphocytes % Lymphocytes % 22 (Manual) Reactive Lymphocytes 6 H % (Manual) Monocytes % Monocytes % (Manual) 7 Eosinophils % Basophils % Nucleated Red Blood 0.0 Cells % Immature 0.050 H Granulocytes # Neutrophils # Neutrophils # 5.1 (Manual) Band Neutrophils # 0.0 Lymphocytes (Manual) 1.7 Lymphocytes # Reactive Lymphocytes 0.4 H # Monocytes # Monocytes # (Manual) 0.5 Eosinophils # Basophils # Nucleated Red Blood Cells # Platelet Estimate NORMAL Giant Platelets 1 H Polychromasia 1+ Poikilocytosis 1+ Anisocytosis 1+ Microcytosis 1+ Macrocytosis 1+ Sodium Level 137 Potassium Level 3.7 Chloride Level 106 Carbon Dioxide Level 19 L Anion Gap 12 Blood Urea Nitrogen 56 H Creatinine 3.19 H Est Glomerular Filtrat Rate mL/min Glucose Level 102 Calcium Level 8.2 L Test 08/31/18 12:17 Bedside Glucose 123 Subjective 24 Hr Interval Summary Constitutional: no complaints Exam/Review of Systems Exam Vitals Vital Signs Date Temp Pulse Resp B/P (MAP) Pulse Ox O2 O2 Flow FiO2 Time Delivery Rate 08/31/18 51 16:39 08/31/18 98.2 18 126/67 98 16:26 (86) 08/28/18 Room Air 22:25 Intake and Output 08/30/18 08/30/18 08/31/18 1515:00 23:00 07:00 IntakeIntake Total 650 ml 550 ml BalanceBalance 650 ml 550 ml Constitutional: alert Respiratory: clear to auscultation Cardiovascular: regular rate and rhythm Gastrointestinal: soft; No distended Musculoskeletal: nl extremities to inspection Results Results 24hrs Laboratory Tests Test 08/30/18 17:38 08/30/18 21:10 08/31/18 05:10 08/31/18 08:53 Bedside Glucose 153 139 105 White Blood Count 8.0 # Red Blood Count 4.58 Hemoglobin 11.9 L Hematocrit 37.1 Mean Corpuscular 81.0 L Volume Mean Corpuscular 26.0 L Hemoglobin Mean Corpuscular 32.1 Hemoglobin Concent Red Cell 13.6 Distribution Width Platelet Count 179 # Mean Platelet Volume 10.2 Immature 0.600 H Granulocytes % Neutrophils % Segmented 64 Neutrophils % (Manual) Band Neutrophils % 1 (Manual) Lymphocytes % Lymphocytes % 22 (Manual) Reactive Lymphocytes 6 H % (Manual) Monocytes % Monocytes % (Manual) 7 Eosinophils % Basophils % Nucleated Red Blood 0.0 Cells % Immature 0.050 H Granulocytes # Neutrophils # Neutrophils # 5.1 (Manual) Band Neutrophils # 0.0 Lymphocytes (Manual) 1.7 Lymphocytes # Reactive Lymphocytes 0.4 H # Monocytes # Monocytes # (Manual) 0.5 Eosinophils # Basophils # Nucleated Red Blood Cells # Platelet Estimate NORMAL Giant Platelets 1 H Polychromasia 1+ Poikilocytosis 1+ Anisocytosis 1+ Microcytosis 1+ Macrocytosis 1+ Sodium Level 137 Potassium Level 3.7 Chloride Level 106 Carbon Dioxide Level 19 L Anion Gap 12 Blood Urea Nitrogen 56 H Creatinine 3.19 H Est Glomerular Filtrat Rate mL/min Glucose Level 102 Calcium Level 8.2 L Test 08/31/18 12:17 Bedside Glucose 123 Medications Medication Current Medications Clonidine (Catapres) 0.1 mg Q8 PO Last administered on 08/31/18 14:54; Admin Dose 0.1 MG; Start 08/28/18 at 22:00 Metoprolol Tartrate (Lopressor) 50 mg QPM PO Last administered on 08/30/18 21:12; Admin Dose 50 MG; Start 08/29/18 at 21:00 Metoprolol Tartrate (Lopressor) 100 mg QAM PO Last administered on 08/31/18 08:56; Admin Dose 100 MG; Start 08/28/18 at 21:30 Hydralazine HCl (Apresoline) 20 mg Q6H PRN IV ELEVATED BLOOD PRESSURE Last administered on 08/29/18 03:36; Admin Dose 20 MG; Start 08/28/18 at 21:30 Hydralazine HCl (Apresoline) 10 mg Q4H PRN IV ELEVATED BLOOD PRESSURE Last administered on 08/31/18 06:26; Admin Dose 10 MG; Start 08/28/18 at 21:30 IV Flush (NS 3 ml) 3 ml PER PROTOCOL IV ; Start 08/28/18 at 21:30 Ondansetron HCl (Zofran Inj) 4 mg Q6H PRN IV NAUSEA/VOMITING Last administered on 08/30/18at 13:41; Admin Dose 4 MG; Start 08/28/18 at 21:30 Acetaminophen (Tylenol Tab) 650 mg Q6H PRN PO .PAIN 1-3 OR TEMP; Start 08/28/18 at 21:30 Docusate Sodium (Colace) 100 mg Q12H PRN PO .CONSTIPATION; Start 08/28/18 at 21:30 Bisacodyl (Dulcolax) 5 mg DAILY PRN PO .CONSTIPATION; Start 08/28/18 at 21:30 Ciprofloxacin HCl (Ciloxan 0.3% Oph) 2 drop Q6H RIGHT EYE Last administered on 08/31/18at 12:18; Admin Dose 2 DROP; Start 08/29/18 at 00:00; Stop 09/04/18 at 23:59 Amlodipine Besylate (Norvasc) 10 mg DAILY PO Last administered on 08/31/18 08:56; Admin Dose 10 MG; Start 08/29/18 at 04:00 Acetaminophen/ Hydrocodone Bitart ([place] (5/325)) 1 tab Q4H PRN PO .PAIN 4-6 Last administered on 08/30/18 06:03; Admin Dose 1 TAB; Start 08/29/18 at 05:30 Diagnostic Test (Pha) (Accu-Chek) 1 ea 02 XX ; Start 08/30/18 at 02:00 Insulin Aspart (Novolog Insulin Pen) NOVOLOG *MILD* ALGORITHM WITH MEALS BEDTIME SC Last administered on 08/30/18 17:55; Admin Dose 1 UNIT; Start 08/29/18 at 08:00 Miscellaneous Information 1 ea NOTE XX ; Start 08/29/18 at 04:00 Glucose (Glutose) 15 gm Q15M PRN PO DECREASED GLUCOSE; Start 08/29/18 at 04:00 Glucose (Glutose) 22.5 gm Q15M PRN PO DECREASED GLUCOSE; Start 08/29/18 at 04:00 Dextrose (D50w Syringe) 25 ml Q15M PRN IV DECREASED GLUCOSE; Start 08/29/18 at 04:00 Dextrose (D50w Syringe) 50 ml Q15M PRN IV DECREASED GLUCOSE; Start 08/29/18 at 04:00 Glucagon (Glucagen) 1 mg Q15M PRN IM DECREASED GLUCOSE; Start 08/29/18 at 04:00 Glucose (Glutose) 15 gm Q15M PRN BUCCAL DECREASED GLUCOSE; Start 08/29/18 at 04:00 Morphine Sulfate (morphine) 2 mg Q4H PRN IV SEVERE PAIN LEVEL 7-10; Start 08/29/18 at 04:00 Acyclovir (Zovirax) 800 mg Q8 PO Last administered on 08/31/18at 14:54; Admin Dose 800 MG; Start 08/30/18 at 06:00 Cephalexin (Keflex) 500 mg Q12 PO Last administered on 08/31/18at 08:55; Admin Dose 500 MG; Start 08/31/18 at 09:00 MARGI RUIZ Aug 31, 2018 17:24
[2018-08-31] MEDS: METOPROLOL 50 MG TAB PO SCH (20:48)
[2018-09-01] VITALS (13 sets, daily range): BP systolic 119–183; BP diastolic 56–84; PULSE 51–90; RESP 18–20
[2018-09-01] MEDS: ACCU-CHEK XX SCH (00:22)
[2018-09-01] MEDS: ACYCLOVIR 800 MG TAB PO SCH ×2 (06:11→20:55)
[2018-09-01] MEDS: CIPROFLOXACIN 0.3% 2.5 ML OPH RIGHT EYE SCH ×3 (06:11→17:27)
[2018-09-01] MEDS: hydrALAzine 20 MG INJ IV PRN (06:12)
--- NOTE | 2018-09-01 07:22 | CONS ---
Assessment/Plan Assessment/Plan Hospital Course (Demo Recall) 1) VZV to R V1 branch increase dose of acyclovir to 800mg TID pt does not recall getting the shingles vaccine 08/31 - continue with acyclovir at 800mg TID but if creatinine further increases to reduce dose to 800mg BID some blisters are weeping with some crusting, will cx site for bacterial culture 09/01 - wound cx has NGTD dose reduce acyclovir to 800mg BID if renal function continues to decrease will have to d/c acyclovir 2) possible corie-orbital cellulitis the swelling could be due to the shingles but picture shows more redness than I appreciated today d/c amoxicillin and clindamycin and start augmentin at 500mg BID will order nasal swab to verify no MRSA 08/31 - nasal is NGTD for MRSA get culture from open wounds on forehead/eyelid d/c augmentin and start keflex 09/01 - dose reduce keflex to 250mg BID wound cx has NGTD and nasal swab was neg for MRSA 3) GNR in urine (e.coli) pt has no urinary symptoms, no fevers and no elevated WBC doubt she needs treatment for UTI d/c ceftriaxone to repeat u/a and urine cx 08/31 - pt has tenderness over bladder and urine cx has e.coli resistant to augmentin d/c augmentin and start keflex 09/01 - repeat urine cx is Neg on oral keflex which is dose reduced due to renal function 4) DM sugars here have been good and the Hgb A1C is not bad 5) HTN still elevated but somewhat better 6) ARF with likely CRI renal u/s shows some chronicity but no acute infection (no hydro or obstruction) 09/01 - renal function has gotten worse will dose reduce acyclovir and keflex if renal function continues to deteriorate will need to d/c acyclovir Consultation Date/Type/Reason Admit Date/Time Aug 28, 2018 at 20:53 Initial Consult Date 08/30/18 Type of Consult ID Date/Time of Note DATE: 09/01/18 TIME: 07:14 24 HR Interval Summary Free Text/Dictation pt denies pain over shingles area no N, V, D no dysphagia Exam/Review of Systems Exam Vitals Vital Signs Date Temp Pulse Resp B/P (MAP) Pulse Ox O2 O2 Flow FiO2 Time Delivery Rate 09/01/18 98.0 65 18 183/84 98 04:24 (117) 08/28/18 Room Air 22:25 Intake and Output 08/31/18 08/31/18 09/01/18 1515:00 23:00 07:00 IntakeIntake Total 870 ml 120 ml BalanceBalance 870 ml 120 ml Constitutional: alert Head: other (more blisters are scabbing and drying up but still some active blisters, redness is improved) ENMT: mucosa pink and moist Respiratory: clear to auscultation Cardiovascular: regular rate and rhythm Gastrointestinal: soft, non-tender Results Result Diagram: 09/01/18 0525 09/01/18 0525 Results 24hrs Laboratory Tests Test 08/31/18 08:53 08/31/18 09:55 08/31/18 12:17 08/31/18 17:52 Bedside Glucose 105 123 132 Total Protein (PEP) 5.2 L Albumin (PEP) Pending [id number] Pending [id number] Pending Beta Globulins Pending Gamma Globulins Pending Protein Pending Electrophoresis Inte rpret Serum Immunofixation Pending Test 08/31/18 20:45 09/01/18 05:25 Bedside Glucose 133 White Blood Count 10.6 # Red Blood Count 4.89 Hemoglobin 12.6 Hematocrit 38.8 Mean Corpuscular 79.3 L Volume Mean Corpuscular 25.8 L Hemoglobin Mean Corpuscular 32.5 Hemoglobin Concent Red Cell 13.7 Distribution Width Platelet Count 203 Mean Platelet Volume 10.0 Immature 0.600 H Granulocytes % Neutrophils % 60.4 Lymphocytes % 31.2 Monocytes % 7.0 Eosinophils % 0.6 Basophils % 0.2 Nucleated Red Blood 0.0 Cells % Immature 0.060 H Granulocytes # Neutrophils # 6.4 Lymphocytes # 3.3 H Monocytes # 0.7 Eosinophils # 0.1 Basophils # 0.0 Nucleated Red Blood 0.0 Cells # Sodium Level 138 Potassium Level 3.8 Chloride Level 103 Carbon Dioxide Level 19 L Anion Gap 16 H Blood Urea Nitrogen 60 H Creatinine 3.42 H Est Glomerular Filtrat Rate mL/min Glucose Level 103 Calcium Level 8.5 Medications Medication Current Medications Clonidine (Catapres) 0.1 mg Q8 PO Last administered on 09/01/18at 06:11; Admin Dose 0.1 MG; Start 2/22/19 at 22:00 Metoprolol Tartrate (Lopressor) 50 mg QPM PO Last administered on 08/30/18 21:12; Admin Dose 50 MG; Start 08/29/18 at 21:00 Metoprolol Tartrate (Lopressor) 100 mg QAM PO Last administered on 08/31/18 08:56; Admin Dose 100 MG; Start 08/28/18 at 21:30 Hydralazine HCl (Apresoline) 20 mg Q6H PRN IV ELEVATED BLOOD PRESSURE Last administered on 08/29/18 03:36; Admin Dose 20 MG; Start 08/28/18 at 21:30 Hydralazine HCl (Apresoline) 10 mg Q4H PRN IV ELEVATED BLOOD PRESSURE Last administered on 09/01/18 06:12; Admin Dose 10 MG; Start 08/28/18 at 21:30 IV Flush (NS 3 ml) 3 ml PER PROTOCOL IV ; Start 08/28/18 at 21:30 Ondansetron HCl (Zofran Inj) 4 mg Q6H PRN IV NAUSEA/VOMITING Last administered on 08/30/18 13:41; Admin Dose 4 MG; Start 08/28/18 at 21:30 Acetaminophen (Tylenol Tab) 650 mg Q6H PRN PO .PAIN 1-3 OR TEMP; Start 08/28/18 at 21:30 Docusate Sodium (Colace) 100 mg Q12H PRN PO .CONSTIPATION; Start 08/28/18 at 21:30 Bisacodyl (Dulcolax) 5 mg DAILY PRN PO .CONSTIPATION; Start 08/28/18 at 21:30 Ciprofloxacin HCl (Ciloxan 0.3% Oph) 2 drop Q6H RIGHT EYE Last administered on 09/01/18 06:11; Admin Dose 2 DROP; Start 08/29/18 at 00:00; Stop 09/04/18 at 23:59 Amlodipine Besylate (Norvasc) 10 mg DAILY PO Last administered on 08/31/18 08:56; Admin Dose 10 MG; Start 08/29/18 at 04:00 Acetaminophen/ Hydrocodone Bitart ([place] (5/325)) 1 tab Q4H PRN PO .PAIN 4-6 Last administered on 08/30/18 06:03; Admin Dose 1 TAB; Start 08/29/18 at 05:30 Diagnostic Test (Pha) (Accu-Chek) 1 ea 02 XX ; Start 08/30/18 at 02:00 Insulin Aspart (Novolog Insulin Pen) NOVOLOG *MILD* ALGORITHM WITH MEALS BEDTIME SC Last administered on 08/30/18at 17:55; Admin Dose 1 UNIT; Start 08/29/18 at 08:00 Miscellaneous Information 1 ea NOTE XX ; Start 08/29/18 at 04:00 Glucose (Glutose) 15 gm Q15M PRN PO DECREASED GLUCOSE; Start 08/29/18 at 04:00 Glucose (Glutose) 22.5 gm Q15M PRN PO DECREASED GLUCOSE; Start 08/29/18 at 04:00 Dextrose (D50w Syringe) 25 ml Q15M PRN IV DECREASED GLUCOSE; Start 08/29/18 at 04:00 Dextrose (D50w Syringe) 50 ml Q15M PRN IV DECREASED GLUCOSE; Start 08/29/18 at 04:00 Glucagon (Glucagen) 1 mg Q15M PRN IM DECREASED GLUCOSE; Start 08/29/18 at 04:00 Glucose (Glutose) 15 gm Q15M PRN BUCCAL DECREASED GLUCOSE; Start 08/29/18 at 04:00 Morphine Sulfate (morphine) 2 mg Q4H PRN IV SEVERE PAIN LEVEL 7-10; Start 08/29/18 at 04:00 Acyclovir (Zovirax) 800 mg Q8 PO Last administered on 09/01/18at 06:11; Admin Dose 800 MG; Start 08/30/18 at 06:00 Cephalexin (Keflex) 500 mg Q12 PO Last administered on 08/31/18at 20:47; Admin Dose 500 MG; Start 08/31/18 at 09:00 ZELDA CANNON MD Sep 01, 2018 07:22
--- NOTE | 2018-09-01 08:32 | PN ---
DATE: 09/01/2018 SUBJECTIVE: The patient is stable, no events overnight. Please note I spoke with the patient's husb and at bedside. Per the patient's , the patient is unaware of any prior history of chronic ki dney disease or acute kidney injury although unclear about medical history. No other events noted. OBJECTIVE: VITALS: Blood pressure is 119/56, pulse 65, respirations 18, temperature 98.2. HEENT: Head is normocephalic. NECK: Supple. HEART: Regular rate. LUNGS: Show diminished breath sounds at the base. ABDOMEN: Soft, nontender to palpation without rebound or guarding. EXTREMITIES: Negative for clubbing, cyanosis, no edema. NEUROLOGIC: The patient has noted a facial rash, no change. NEUROLOGIC: No change in exam. MEDICATIONS: Reviewed. LABORATORY DATA: Shows sodium 138, potassium 3.8, BUN 60, creatinine 3.42. White count 10.6, hemogl obin 12.6, platelet count is 203. ASSESSMENT AND PLAN: 1. Nonoliguric acute kidney injury on top of chronic kidney disease with unknown baseline creatinine . Etiology of current acute kidney injury is multifactorial, possibly due to hemodynamics. Possible interstitial nephritis and/or tubular injury is a consideration. The patient's urinalysis does show pyuria, hematuria. Urine cultures were positive. Additionally, the patient is on acyclovir, which can cause interstitial nephritis or acute tubular necrosis. At this point, we would continue current medical management. Continue supportive care, renally dose all medicines. Monitor renal function c losely. Repeat urinalysis is pending. 2. Chronic kidney disease with proteinuria. Etiology may be secondary to history of hypertensive ne phrosclerosis, possible diabetes. The patient is currently in acute kidney injury as stated above. Continue current treatment plan. Otherwise, continue disease factor modification. 3. Anemia. Monitor hemoglobin and hematocrit levels. 4. Mineral bone disorder. Monitor calcium and phosphorus levels. 5. Right periorbital shingles. Continue antiviral therapy, monitor renal function closely. 6. Hypertension. Blood pressure is fluctuating. Continue to hold ARB, hydrochlorothiazide. 7. Acute kidney injury. 8. Urinary tract infection. Continue current antibiotic regimen. 9. Right eye conjunctivitis. Continue current medical management. 10. Incidental meningioma. Continue to monitor, pending outpatient workup. Dictated By: MOE GAMEZ/HAMILTON Conf#: [id number] [facility]#: [id number] CC: JAX ANGEL MD; ZHANNA DIAZ MD; MARGI RUIZ MD;*[facility]*
[2018-09-01] MEDS: METOPROLOL 100 MG TAB PO SCH (08:52)
[2018-09-01] MEDS: CEPHALEXIN 250 MG CAP PO SCH ×2 (08:53→20:56)
[2018-09-01] MEDS: AMLODIPINE 10 MG TAB PO SCH (08:53)
[2018-09-01] MEDS: INSULIN ASPART [NOVOLOG] 3 ML PEN SC SCH ×4 (09:01→20:21)
--- NOTE | 2018-09-01 11:56 | CONS ---
Assessment/Plan Assessment/Plan Hospital Course (Demo Recall) HTN: BP as high as 241/108, now improved. Usually also on olmesartan 40mg at home but held due to renal failure. Acute on chronic renal failure: last known Cr to me was 1.8 05/2017. Now worse and trending up still. ?acyclovir Periorbital cellulitis Zoster Meningioma DM -amlodipine 10mg daily -clonidine 0.1mg TID (usually on BID) -metoprolol 100mg qam, 50mg qpm -olmesartan being held due to renal failure Consultation Date/Type/Reason Admit Date/Time Aug 28, 2018 at 20:53 Date of Consultation: Sep 01, 2018 Type of Consult Cardiology Reason for Consultation HTN Requesting Provider: MARGI RUIZ Date/Time of Note DATE: 09/01/18 TIME: 11:50 Hx of Present Illness 83 yo F well known to me from clinic with a h/o HTN, CKD (last known Cr 1.8 05/2017), DM, who presented with facial rash and swelling and is being treated for zoster and periorbital cellulitis. She was also found to have a meningioma on MRI. Her BP has been as high as 241/108 but recently better controlled. Her olmesartan was stopped due to renal failure. Her Cr has been trending up again. She denies SOB, chest pain. Facial pain has improved. per HPI Past Medical History per hPI Home Meds Reported Medications Hydrochlorothiazide* (Hydrochlorothiazide*) 12.5 Mg Tablet, 12.5 MG PO DAILY, #30 TAB 08/28/18 Metformin* (Glucophage*) 500 Mg Tab, 500 MG PO BID WITH MEALS, #90 TAB 08/28/18 Metoprolol Tartrate* (Lopressor*) 100 Mg Tablet, 100 MG PO QAM, #60 TAB 08/28/18 Metoprolol Tartrate* (Lopressor*) 50 Mg Tab, 50 MG PO QPM, #60 TAB 08/28/18 Olmesartan Medoxomil (Benicar) 40 Mg Tablet, 40 MG PO DAILY, #30 TAB 08/28/18 Clonidine Hcl* (Clonidine Hcl*) 0.1 Mg Tab, 0.1 MG PO Q8, TAB 08/28/18 Medications Current Medications Clonidine (Catapres) 0.1 mg Q8 PO Last administered on 09/01/18 06:11; Admin Dose 0.1 MG; Start 08/28/18 at 22:00 Metoprolol Tartrate (Lopressor) 50 mg QPM PO Last administered on 08/30/18 21:12; Admin Dose 50 MG; Start 08/29/18 at 21:00 Metoprolol Tartrate (Lopressor) 100 mg QAM PO Last administered on 09/01/18 08:52; Admin Dose 100 MG; Start 08/28/18 at 21:30 Hydralazine HCl (Apresoline) 20 mg Q6H PRN IV ELEVATED BLOOD PRESSURE Last administered on 08/29/18 03:36; Admin Dose 20 MG; Start 08/28/18 at 21:30 Hydralazine HCl (Apresoline) 10 mg Q4H PRN IV ELEVATED BLOOD PRESSURE Last ad ministered on 09/01/18 06:12; Admin Dose 10 MG; Start 08/28/18 at 21:30 IV Flush (NS 3 ml) 3 ml PER PROTOCOL IV ; Start 08/28/18 at 21:30 Ondansetron HCl (Zofran Inj) 4 mg Q6H PRN IV NAUSEA/VOMITING Last administered on 08/30/18 13:41; Admin Dose 4 MG; Start 08/28/18 at 21:30 Acetaminophen (Tylenol Tab) 650 mg Q6H PRN PO .PAIN 1-3 OR TEMP; Start 08/28/18 at 21:30 Docusate Sodium (Colace) 100 mg Q12H PRN PO .CONSTIPATION; Start 08/28/18 at 21:30 Bisacodyl (Dulcolax) 5 mg DAILY PRN PO .CONSTIPATION; Start 08/28/18 at 21:30 Ciprofloxacin HCl (Ciloxan 0.3% Oph) 2 drop Q6H RIGHT EYE Last administered on 09/01/18 06:11; Admin Dose 2 DROP; Start 08/29/18 at 00:00; Stop 09/04/18 at 23:59 Amlodipine Besylate (Norvasc) 10 mg DAILY PO Last administered on 09/01/18 08:53; Admin Dose 10 MG; Start 08/29/18 at 04:00 Acetaminophen/ Hydrocodone Bitart ([place] (5/325)) 1 tab Q4H PRN PO .PAIN 4-6 Last administered on 08/30/18at 06:03; Admin Dose 1 TAB; Start 08/29/18 at 05:30 Diagnostic Test (Pha) (Accu-Chek) 1 ea 02 XX ; Start 08/30/18 at 02:00 Insulin Aspart (Novolog Insulin Pen) NOVOLOG *MILD* ALGORITHM WITH MEALS BEDTIME SC Last administered on 09/01/18at 09:01; Admin Dose 2 UNIT; Start 08/29/18 at 08:00 Miscellaneous Information 1 ea NOTE XX ; Start 08/29/18 at 04:00 Glucose (Glutose) 15 gm Q15M PRN PO DECREASED GLUCOSE; Start 08/29/18 at 04:00 Glucose (Glutose) 22.5 gm Q15M PRN PO DECREASED GLUCOSE; Start 08/29/18 at 04:00 Dextrose (D50w Syringe) 25 ml Q15M PRN IV DECREASED GLUCOSE; Start 08/29/18 at 04:00 Dextrose (D50w Syringe) 50 ml Q15M PRN IV DECREASED GLUCOSE; Start 08/29/18 at 04:00 Glucagon (Glucagen) 1 mg Q15M PRN IM DECREASED GLUCOSE; Start 08/29/18 at 04:00 Glucose (Glutose) 15 gm Q15M PRN BUCCAL DECREASED GLUCOSE; Start 08/29/18 at 04:00 Morphine Sulfate (morphine) 2 mg Q4H PRN IV SEVERE PAIN LEVEL 7-10; Start 08/29/18 at 04:00 Acyclovir (Zovirax) 800 mg Q12 PO ; Start 09/01/18 at 21:00 Cephalexin (Keflex) 250 mg Q12 PO Last administered on 09/01/18at 08:53; Admin Dose 250 MG; Start 09/01/18 at 09:00 Allergies: Coded Allergies: No Known Allergy (Unverified , 08/28/18) Social History Alcohol Use: none Smoking Status: Never smoker Drug Use: none Exam/Review of Systems Exam Vitals Vital Signs Date Temp Pulse Resp B/P (MAP) Pulse Ox O2 O2 Flow FiO2 Time Delivery Rate 09/01/18 63 08:47 09/01/18 98.2 18 119/56 99 07:38 (77) 08/28/18 Room Air 22:25 Intake and Output 08/31/18 08/31/18 09/01/18 1515:00 23:00 07:00 IntakeIntake Total 870 ml 120 ml BalanceBalance 870 ml 120 ml Constitutional: alert, oriented Psych: no complaints, nl mood/affect Head: normocephalic, atraumatic, other (facial rash noted ) Neck: No jvd Respiratory: clear to auscultation Cardiovascular: regular rate and rhythm, systolic murmur (2/6 JULIANA); No edema Gastrointestinal: soft, non-tender; No distended Neurological: nl mental status, nl speech Results Result Diagram: 09/01/1852409/01/18524 Results 24hrs Laboratory Tests Test 08/31/18 12:17 08/31/18 17:52 08/31/18 20:45 09/01/18 05:25 Bedside Glucose 123 132 133 White Blood Count 10.6 # Red Blood Count 4.89 Hemoglobin 12.6 Hematocrit 38.8 Mean Corpuscular 79.3 L Volume Mean Corpuscular 25.8 L Hemoglobin Mean Corpuscular 32.5 Hemoglobin Concent Red Cell 13.7 Distribution Width Platelet Count 203 Mean Platelet Volume 10.0 Immature 0.600 H Granulocytes % Neutrophils % 60.4 Lymphocytes % 31.2 Monocytes % 7.0 Eosinophils % 0.6 Basophils % 0.2 Nucleated Red Blood 0.0 Cells % Immature 0.060 H Granulocytes # Neutrophils # 6.4 Lymphocytes # 3.3 H Monocytes # 0.7 Eosinophils # 0.1 Basophils # 0.0 Nucleated Red Blood 0.0 Cells # Sodium Level 138 Potassium Level 3.8 Chloride Level 103 Carbon Dioxide Level 19 L Anion Gap 16 H Blood Urea Nitrogen 60 H Creatinine 3.42 H Est Glomerular Filtrat Rate mL/min Glucose Level 103 Calcium Level 8.5 Test 09/01/18 08:51 Bedside Glucose 201 Medications Medication Current Medications Clonidine (Catapres) 0.1 mg Q8 PO Last administered on 09/01/18at 06:11; Admin Dose 0.1 MG; Start 08/28/18 at 22:00 Metoprolol Tartrate (Lopressor) 50 mg QPM PO Last administered on 08/30/18at 21:12; Admin Dose 50 MG; Start 08/29/18 at 21:00 Metoprolol Tartrate (Lopressor) 100 mg QAM PO Last administered on 09/01/18at 08:52; Admin Dose 100 MG; Start 08/28/18 at 21:30 Hydralazine HCl (Apresoline) 20 mg Q6H PRN IV ELEVATED BLOOD PRESSURE Last administered on 08/29/18at 03:36; Admin Dose 20 MG; Start 08/28/18 at 21:30 Hydralazine HCl (Apresoline) 10 mg Q4H PRN IV ELEVATED BLOOD PRESSURE Last administered on 09/01/18 06:12; Admin Dose 10 MG; Start 08/28/18 at 21:30 IV Flush (NS 3 ml) 3 ml PER PROTOCOL IV ; Start 08/28/18 at 21:30 Ondansetron HCl (Zofran Inj) 4 mg Q6H PRN IV NAUSEA/VOMITING Last administered on 08/30/18 13:41; Admin Dose 4 MG; Start 08/28/18 at 21:30 Acetaminophen (Tylenol Tab) 650 mg Q6H PRN PO .PAIN 1-3 OR TEMP; Start 08/28/18 at 21:30 Docusate Sodium (Colace) 100 mg Q12H PRN PO .CONSTIPATION; Start 08/28/18 at 21:30 Bisacodyl (Dulcolax) 5 mg DAILY PRN PO .CONSTIPATION; Start 08/28/18 at 21:30 Ciprofloxacin HCl (Ciloxan 0.3% Oph) 2 drop Q6H RIGHT EYE Last administered on 09/01/18at 06:11; Admin Dose 2 DROP; Start 08/29/18 at 00:00; Stop 09/04/18 at 23:59 Amlodipine Besylate (Norvasc) 10 mg DAILY PO Last administered on 09/01/18at 08:53; Admin Dose 10 MG; Start 08/29/18 at 04:00 Acetaminophen/ Hydrocodone Bitart ([place] (5/325)) 1 tab Q4H PRN PO .PAIN 4-6 Last administered on 08/30/18 06:03; Admin Dose 1 TAB; Start 08/29/18 at 05:30 Diagnostic Test (Pha) (Accu-Chek) 1 ea 02 XX ; Start 08/30/18 at 02:00 Insulin Aspart (Novolog Insulin Pen) NOVOLOG *MILD* ALGORITHM WITH MEALS BEDTIME SC Last administered on 09/01/18at 09:01; Admin Dose 2 UNIT; Start 08/29/18 at 08:00 Miscellaneous Information 1 ea NOTE XX ; Start 08/29/18 at 04:00 Glucose (Glutose) 15 gm Q15M PRN PO DECREASED GLUCOSE; Start 08/29/18 at 04:00 Glucose (Glutose) 22.5 gm Q15M PRN PO DECREASED GLUCOSE; Start 08/29/18 at 04:00 Dextrose (D50w Syringe) 25 ml Q15M PRN IV DECREASED GLUCOSE; Start 08/29/18 at 04:00 Dextrose (D50w Syringe) 50 ml Q15M PRN IV DECREASED GLUCOSE; Start 08/29/18 at 04:00 Glucagon (Glucagen) 1 mg Q15M PRN IM DECREASED GLUCOSE; Start 08/29/18 at 04:00 Glucose (Glutose) 15 gm Q15M PRN BUCCAL DECREASED GLUCOSE; Start 08/29/18 at 04:00 Morphine Sulfate (morphine) 2 mg Q4H PRN IV SEVERE PAIN LEVEL 7-10; Start 08/29/18 at 04:00 Acyclovir (Zovirax) 800 mg Q12 PO ; Start 09/01/18 at 21:00 Cephalexin (Keflex) 250 mg Q12 PO Last administered on 09/01/18at 08:53; Admin Dose 250 MG; Start 09/01/18 at 09:00 KATHERYN VAUGHN Sep 01, 2018 11:56
--- NOTE | 2018-09-01 14:50 | RADRPT ---
Echocardiogram Report Patient Name: JENNI MCALLISTERPatient ID: [id number] : 1935 (83y 1m)Study Date: 09/01/2018 12:12:32 PM Gender: FAccession #: [id number] Tech: Cheri Curry RDCS Location: 8 Ref.Physician: KATHERYN SIDDIQUI Height(Cm): BSA: Weight(Kg): Quality: AdequateAccount #: Procedures: Echocardiographic Report: Transthoracic echocardiogram with complete 2D, M-Mode, and doppler examination. Indications: h/o valvular disease. Measurements: 2D/M Mode Doppler Measurement Value Normal Range Measurement Value Normal Range LVIDd 2D 3.1 [ 3.8 - 5.2 ] cm AV Mean Keanu 1.3 [ 70.0 - 90.0 ] cm/sec LVIDs 2D 1.7 [ 2.2 - 3.5 ] cm AV Mean PG 8.0 [ 2.0 - 4.0 ] mmHg LVPWd 2D 1.0 [ 0.6 - 0.9 ] cm AV Peak Keanu 2.0 [ 100.0 - 170.0 ] cm/sec IVSd 2D 1.1 [ 0.6 - 0.9 ] cm AV Peak PG 16.0 [ 2.0 - 9.0 ] mmHg AoR Diam 2D 2.2 [ 2.3 - 3.1 ] cm AV VTI 42.8 cm EDV 2D 38.8 [ 46.0 - 106.0 ] ml AI Peak PG 73.0 mmHg ESV 2D 8.8 [ 14.0 - 42.0 ] ml AI Peak Keanu 4.3 cm/sec EF 2D 77.4 [ 54.0 - 74.0 ] percent AI PHT 424.0 msec LA Dimen 2D 2.5 [ 2.7 - 3.8 ] cm LVOT Mean Keanu 0.9 [ 60.0 - 80.0 ] cm/sec LVOT Mean PG 4.0 [ 1.0 - 3.0 ] mmHg LVOT Peak Keanu 1.4 [ 70.0 - 110.0 ] cm/sec LVOT Peak PG 8.0 [ 2.0 - 6.0 ] mmHg LVOT VTI 36.6 [ 20.0 - 30.0 ] cm MV E Peak Keanu 0.8 [ 60.0 - 130.0 ] cm/sec MV A Peak Keanu 1.1 [ 100.0 - 120.0 ] cm/sec MV E/A 0.7 [ 0.8 - 1.5 ] ratio MV Decel Time 356 [ 104 - 258 ] msec Lat E` Keanu 0.1 [ 10.0 - 15.0 ] cm/sec Lateral E/E` 14.7 [ 1.0 - 2.0 ] ratio MV E/A 0.7 [ 0.8 - 1.5 ] ratio TR Peak Keanu 3.5 [ 100.0 - 280.0 ] cm/sec TR Peak PG 48.0 mmHg RVSP 51.0 [ 10.0 - 36.0 ] mmHg RA Pressure 3.0 mmHg Findings: Left Ventricle: Normal left ventricular systolic function. Normal left ventricular cavity size. Mild to moderate concentric left ventricular hypertrophy. Ejection fraction is visually estimated at 65 %. Tissue Doppler/Mitral Doppler indices are consistent with impaired relaxation (Stage I diastolic dysfunction). Right Ventricle: Normal right ventricular size. Normal right ventricular systolic function. Left Atrium: There is mild enlargement of left atrium. Right Atrium: There is mild enlargement of right atrium. Mitral Valve: Normal appearance of the mitral valve. Mild mitral valve regurgitation. Aortic Valve: Aortic sclerosis without significant stenosis. Mild aortic valve regurgitation. Tricuspid Valve: Normal appearance of the tricuspid valve. Estimated peak PA systolic pressure 51 mmHg. There is moderate tricuspid regurgitation. Pulmonic Valve: Normal pulmonic valve appearance. Pericardium: Normal pericardium with no significant pericardial effusion. Aorta: Normal aortic root. IVC: Normal size and normal respiratory collapse consistent with normal right atrial pressure. Conclusions: Normal left ventricular systolic function. Normal left ventricular cavity size. Mild to moderate concentric left ventricular hypertrophy. Ejection fraction is visually estimated at 65 %. Tissue Doppler/Mitral Doppler indices are consistent with impaired relaxation (Stage I diastolic dysfunction). Aortic sclerosis without significant stenosis. Mild aortic valve regurgitation. Moderate tricuspid regurgitation. Estimated peak PA systolic pressure 51 mmHg based on RA pressure of 3 mmHg. Electronically Signed By: Katheryn Siddiqui 2018-09-01 14:48:39 PST
--- NOTE | 2018-09-01 16:01 | PN ---
Date/Time of Note Date/Time of Note DATE: 09/01/18 TIME: 15:59 Assessment/Plan VTE Prophylaxis Risk score (from Ns)>0 risk: 4 SCD applied (from Ns): Yes Pharmacological prophylaxis: NA/contraindicated Pharm contraindication: low risk/ambulating Lines/Catheters IV C[facility] Type [facility]from [facility] Saline Lock Urinary Cath still in place: No Assessment/Plan Hospital Course 83 yo female with CKD, hypertension presents with shingles of the face and periorbital cellulitis, found to have incidental meningioma and severe hypertension Shingles with periorbital cellutitis: - Continues to improve, therapies working - Continue acylovir and Keflex per Dr Mouna Cotton gtt Severe hypertension: - Much improved - Continue home regimen of amlodipine, clonidine 0.1 q8h, metoprolol KERRY on CKD-creatinine trending up - Unknown baseline creatinine - Hold ARB, trend BP -Nephrology following Incidental meningioma -Outpatient workup -Asymptomatic Prophylaxis: SCDs DC planning: Continue to monitor renal function Result Diagram: 09/01/1852409/01/18 0525 Results 24hrs Laboratory Tests Test 08/31/18 17:52 08/31/18 20:45 09/01/18 05:25 09/01/18 08:51 Bedside Glucose 132 133 201 White Blood Count 10.6 # Red Blood Count 4.89 Hemoglobin 12.6 Hematocrit 38.8 Mean Corpuscular 79.3 L Volume Mean Corpuscular 25.8 L Hemoglobin Mean Corpuscular 32.5 Hemoglobin Concent Red Cell 13.7 Distribution Width Platelet Count 203 Mean Platelet Volume 10.0 Immature 0.600 H Granulocytes % Neutrophils % 60.4 Lymphocytes % 31.2 Monocytes % 7.0 Eosinophils % 0.6 Basophils % 0.2 Nucleated Red Blood 0.0 Cells % Immature 0.060 H Granulocytes # Neutrophils # 6.4 Lymphocytes # 3.3 H Monocytes # 0.7 Eosinophils # 0.1 Basophils # 0.0 Nucleated Red Blood 0.0 Cells # Sodium Level 138 Potassium Level 3.8 Chloride Level 103 Carbon Dioxide Level 19 L Anion Gap 16 H Blood Urea Nitrogen 60 H Creatinine 3.42 H Est Glomerular Filtrat Rate mL/min Glucose Level 103 Calcium Level 8.5 Test 09/01/18 12:08 Bedside Glucose 113 Subjective 24 Hr Interval Summary Constitutional: no complaints Exam/Review of Systems Exam Vitals Vital Signs Date Temp Pulse Resp B/P (MAP) Pulse Ox O2 O2 Flow FiO2 Time Delivery Rate 09/01/18 165/73 14:15 (103) 09/01/18 59 12:49 09/01/18 98.5 20 20 12:46 08/28/18 Room Air 22:25 Intake and Output 08/31/18 08/31/18 09/01/18 1515:00 23:00 07:00 IntakeIntake Total 870 ml 120 ml BalanceBalance 870 ml 120 ml Constitutional: alert, oriented Respiratory: clear to auscultation Cardiovascular: regular rate and rhythm Gastrointestinal: soft; No distended Musculoskeletal: nl extremities to inspection Results Results 24hrs Laboratory Tests Test 08/31/18 17:52 08/31/18 20:45 09/01/18 05:25 09/01/18 08:51 Bedside Glucose 132 133 201 White Blood Count 10.6 # Red Blood Count 4.89 Hemoglobin 12.6 Hematocrit 38.8 Mean Corpuscular 79.3 L Volume Mean Corpuscular 25.8 L Hemoglobin Mean Corpuscular 32.5 Hemoglobin Concent Red Cell 13.7 Distribution Width Platelet Count 203 Mean Platelet Volume 10.0 Immature 0.600 H Granulocytes % Neutrophils % 60.4 Lymphocytes % 31.2 Monocytes % 7.0 Eosinophils % 0.6 Basophils % 0.2 Nucleated Red Blood 0.0 Cells % Immature 0.060 H Granulocytes # Neutrophils # 6.4 Lymphocytes # 3.3 H Monocytes # 0.7 Eosinophils # 0.1 Basophils # 0.0 Nucleated Red Blood 0.0 Cells # Sodium Level 138 Potassium Level 3.8 Chloride Level 103 Carbon Dioxide Level 19 L Anion Gap 16 H Blood Urea Nitrogen 60 H Creatinine 3.42 H Est Glomerular Filtrat Rate mL/min Glucose Level 103 Calcium Level 8.5 Test 09/01/18 12:08 Bedside Glucose 113 Medications Medication Current Medications Clonidine (Catapres) 0.1 mg Q8 PO Last administered on 09/01/18at 14:18; Admin Dose 0.1 MG; Start 08/28/18 at 22:00 Metoprolol Tartrate (Lopressor) 50 mg QPM PO Last administered on 08/30/18at 21:12; Admin Dose 50 MG; Start 08/29/18 at 21:00 Metoprolol Tartrate (Lopressor) 100 mg QAM PO Last administered on 09/01/18 08:52; Admin Dose 100 MG; Start 08/28/18 at 21:30 Hydralazine HCl (Apresoline) 20 mg Q6H PRN IV ELEVATED BLOOD PRESSURE Last administered on 08/29/18 03:36; Admin Dose 20 MG; Start 08/28/18 at 21:30 Hydralazine HCl (Apresoline) 10 mg Q4H PRN IV ELEVATED BLOOD PRESSURE Last administered on 09/01/18 06:12; Admin Dose 10 MG; Start 08/28/18 at 21:30 IV Flush (NS 3 ml) 3 ml PER PROTOCOL IV ; Start 08/28/18 at 21:30 Ondansetron HCl (Zofran Inj) 4 mg Q6H PRN IV NAUSEA/VOMITING Last administered on 08/30/18 13:41; Admin Dose 4 MG; Start 08/28/18 at 21:30 Acetaminophen (Tylenol Tab) 650 mg Q6H PRN PO .PAIN 1-3 OR TEMP; Start 08/28/18 at 21:30 Docusate Sodium (Colace) 100 mg Q12H PRN PO .CONSTIPATION; Start 08/28/18 at 21:30 Bisacodyl (Dulcolax) 5 mg DAILY PRN PO .CONSTIPATION; Start 08/28/18 at 21:30 Ciprofloxacin HCl (Ciloxan 0.3% Oph) 2 drop Q6H RIGHT EYE Last administered on 09/01/18 12:10; Admin Dose 2 DROP; Start 08/29/18 at 00:00; Stop 09/04/18 at 23:59 Amlodipine Besylate (Norvasc) 10 mg DAILY PO Last administered on 09/01/18 08:53; Admin Dose 10 MG; Start 08/29/18 at 04:00 Acetaminophen/ Hydrocodone Bitart ([place] (5/325)) 1 tab Q4H PRN PO .PAIN 4-6 Last administered on 08/30/18 06:03; Admin Dose 1 TAB; Start 08/29/18 at 05:30 Diagnostic Test (Pha) (Accu-Chek) 1 ea 02 XX ; Start 08/30/18 at 02:00 Insulin Aspart (Novolog Insulin Pen) NOVOLOG *MILD* ALGORITHM WITH MEALS BEDTIME SC Last administered on 2/26/19at 09:01; Admin Dose 2 UNIT; Start 08/29/18 at 08:00 Miscellaneous Information 1 ea NOTE XX ; Start 08/29/18 at 04:00 Glucose (Glutose) 15 gm Q15M PRN PO DECREASED GLUCOSE; Start 08/29/18 at 04:00 Glucose (Glutose) 22.5 gm Q15M PRN PO DECREASED GLUCOSE; Start 08/29/18 at 04:00 Dextrose (D50w Syringe) 25 ml Q15M PRN IV DECREASED GLUCOSE; Start 08/29/18 at 04:00 Dextrose (D50w Syringe) 50 ml Q15M PRN IV DECREASED GLUCOSE; Start 08/29/18 at 04:00 Glucagon (Glucagen) 1 mg Q15M PRN IM DECREASED GLUCOSE; Start 08/29/18 at 04:00 Glucose (Glutose) 15 gm Q15M PRN BUCCAL DECREASED GLUCOSE; Start 08/29/18 at 04:00 Morphine Sulfate (morphine) 2 mg Q4H PRN IV SEVERE PAIN LEVEL 7-10; Start 08/29/18 at 04:00 Acyclovir (Zovirax) 800 mg Q12 PO ; Start 09/01/18 at 21:00 Cephalexin (Keflex) 250 mg Q12 PO Last administered on 09/01/18at 08:53; Admin D ose 250 MG; Start 09/01/18 at 09:00 MARGI RUIZ Sep 01, 2018 16:01
[2018-09-01] MEDS: METOPROLOL 50 MG TAB PO SCH (20:55)
[2018-09-02] VITALS (10 sets, daily range): BP systolic 152–172; BP diastolic 72–86; PULSE 60–80; RESP 18
[2018-09-02] MEDS: CIPROFLOXACIN 0.3% 2.5 ML OPH RIGHT EYE SCH ×3 (00:41→12:22)
[2018-09-02] MEDS: ACCU-CHEK XX SCH (02:00)
--- NOTE | 2018-09-02 07:07 | CONS ---
Assessment/Plan Assessment/Plan Hospital Course (Demo Recall) 1) VZV to R V1 branch increase dose of acyclovir to 800mg TID pt does not recall getting the shingles vaccine 08/31 - continue with acyclovir at 800mg TID but if creatinine further increases to reduce dose to 800mg BID some blisters are weeping with some crusting, will cx site for bacterial culture 09/01 - wound cx has NGTD dose reduce acyclovir to 800mg BID if renal function continues to decrease will have to d/c acyclovir 09/02 - creatinine is slightly improved continue with acyclovir at 800mg BID thru 09/06/18 2) possible corie-orbital cellulitis the swelling could be due to the shingles but picture shows more redness than I appreciated today d/c amoxicillin and clindamycin and start augmentin at 500mg BID will order nasal swab to verify no MRSA 08/31 - nasal is NGTD for MRSA get culture from open wounds on forehead/eyelid d/c augmentin and start keflex 09/01 - dose reduce keflex to 250mg BID wound cx has NGTD and nasal swab was neg for MRSA 09/02 - stable, continue keflex at 250mg BID thru 09/04/18 wound cx remains NGTD 3) GNR in urine (e.coli) pt has no urinary symptoms, no fevers and no elevated WBC doubt she needs treatment for UTI d/c ceftriaxone to repeat u/a and urine cx 08/31 - pt has tenderness over bladder and urine cx has e.coli resistant to augmentin d/c augmentin and start keflex 09/01 - repeat urine cx is Neg on oral keflex which is dose reduced due to renal function 09/02 - repeat u/a is much improved 4) DM sugars here have been good and the Hgb A1C is not bad 5) HTN still elevated but somewhat better 6) ARF with likely CRI renal u/s shows some chronicity but no acute infection (no hydro or obstruction) 09/01 - renal function has gotten worse will dose reduce acyclovir and keflex if renal function continues to deteriorate will need to d/c acyclovir 09/02 - creatinine is improved, ok to continue with acyclovir thru 09/06 and keflex thru 09/04 Consultation Date/Type/Reason Admit Date/Time Aug 28, 2018 at 20:53 Initial Consult Date 08/30/18 Type of Consult ID Requesting Provider: MARGI RUIZ Date/Time of Note DATE: 09/02/18 TIME: 07:00 24 HR Interval Summary Free Text/Dictation doing well no N, V, D, SOB Exam/Review of Systems Exam Vitals Vital Signs Date Temp Pulse Resp B/P (MAP) Pulse Ox O2 O2 Flow FiO2 Time Delivery Rate 09/02/18 68 04:00 09/01/18 98.4 18 140/67 97 23:38 (91) Intake and Output 09/01/18 09/01/18 09/02/18 1515:00 23:00 07:00 IntakeIntake Total 700 ml BalanceBalance 700 ml Constitutional: alert Head: other (only a few blisters left, the rest are scabbed or broken open, redness is mostly resolved) Eyes: nl sclera Respiratory: clear to auscultation Cardiovascular: regular rate and rhythm Gastrointestinal: soft Results Result Diagram: 09/02/18 0538 09/02/18 0538 Results 24hrs Laboratory Tests Test 09/01/18 08:51 09/01/18 12:08 09/01/18 17:24 09/01/18 17:40 Bedside Glucose 201 113 132 Urine Color YELLOW Urine Clarity SLIGHTLY CLOUDY A Urine pH 5.0 Urine Specific 1.017 [place] Urine Ketones NEGATIVE Urine Nitrite NEGATIVE Urine Bilirubin NEGATIVE Urine NEGATIVE Urobilinogen Urine Leukocyte NEGATIVE Esterase Urine Microscopic 0 RBC Urine Microscopic 6 H WBC Urine Squamous FEW Epithelial Cells Urine Hemoglobin NEGATIVE Urine Random 123.34 Creatinine Urine Random 28 L Sodium Urine Glucose 1+ H Urine Total 277.0 H Protein Test 09/01/18 20:21 09/02/18 05:38 Bedside Glucose 154 White Blood Count 10.3 Red Blood Count 4.74 Hemoglobin 12.3 Hematocrit 37.4 Mean Corpuscular 78.9 L Volume Mean Corpuscular 25.9 L Hemoglobin Mean Corpuscular 32.9 Hemoglobin Concen t Red Cell 13.6 Distribution Width Platelet Count 191 Mean Platelet 9.8 Volume Immature 0.800 H Granulocytes % Neutrophils % 55.9 Lymphocytes % 33.3 Monocytes % 8.9 Eosinophils % 0.8 Basophils % 0.3 Nucleated Red 0.0 Blood Cells % Immature 0.080 H Granulocytes # Neutrophils # 5.8 Lymphocytes # 3.4 H Monocytes # 0.9 Eosinophils # 0.1 Basophils # 0.0 Nucleated Red 0.0 Blood Cells # Sodium Level 137 Potassium Level 3.7 Chloride Level 106 Carbon Dioxide 21 Level Anion Gap 10 # Blood Urea 61 H Nitrogen Creatinine 3.11 H Est Glomerular Filtrat Rate mL/min Glucose Level 97 Calcium Level 8.4 Phosphorus Level 5.4 H Magnesium Level 2.3 Medications Medication Current Medications Clonidine (Catapres) 0.1 mg Q8 PO Last administered on 09/02/18 05:48; Admin Dose 0.1 MG; Start 08/28/18 at 22:00 Metoprolol Tartrate (Lopressor) 50 mg QPM PO Last administered on 09/01/18 20:55; Admin Dose 50 MG; Start 08/29/18 at 21:00 Metoprolol Tartrate (Lopressor) 100 mg QAM PO Last administered on 09/01/18 08:52; Admin Dose 100 MG; Start 08/28/18 at 21:30 Hydralazine HCl (Apresoline) 20 mg Q6H PRN IV ELEVATED BLOOD PRESSURE Last administered on 08/29/18 03:36; Admin Dose 20 MG; Start 08/28/18 at 21:30 Hydralazine HCl (Apresoline) 10 mg Q4H PRN IV ELEVATED BLOOD PRESSURE Last administered on 09/01/18 06:12; Admin Dose 10 MG; Start 08/28/18 at 21:30 IV Flush (NS 3 ml) 3 ml PER PROTOCOL IV ; Start 08/28/18 at 21:30 Ondansetron HCl (Zofran Inj) 4 mg Q6H PRN IV NAUSEA/VOMITING Last administered on 08/30/18 13:41; Admin Dose 4 MG; Start 08/28/18 at 21:30 Acetaminophen (Tylenol Tab) 650 mg Q6H PRN PO .PAIN 1-3 OR TEMP; Start 08/28/18 at 21:30 Docusate Sodium (Colace) 100 mg Q12H PRN PO .CONSTIPATION; Start 08/28/18 at 21:30 Bisacodyl (Dulcolax) 5 mg DAILY PRN PO .CONSTIPATION; Start 08/28/18 at 21:30 Ciprofloxacin HCl (Ciloxan 0.3% Oph) 2 drop Q6H RIGHT EYE Last administered on 2/27/19at 05:45; Admin Dose 2 DROP; Start 08/29/18 at 00:00; Stop 09/04/18 at 23:59 Amlodipine Besylate (Norvasc) 10 mg DAILY PO Last administered on 09/01/18at 08:53; Admin Dose 10 MG; Start 08/29/18 at 04:00 Acetaminophen/ Hydrocodone Bitart ([place] (5/325)) 1 tab Q4H PRN PO .PAIN 4-6 Last administered on 08/30/18 06:03; Admin Dose 1 TAB; Start 08/29/18 at 05:30 Diagnostic Test (Pha) (Accu-Chek) 1 ea 02 XX ; Start 08/30/18 at 02:00 Insulin Aspart (Novolog Insulin Pen) NOVOLOG *MILD* ALGORITHM WITH MEALS BE DTIME SC Last administered on 09/01/18at 09:01; Admin Dose 2 UNIT; Start 08/29/18 at 08:00 Miscellaneous Information 1 ea NOTE XX ; Start 08/29/18 at 04:00 Glucose (Glutose) 15 gm Q15M PRN PO DECREASED GLUCOSE; Start 08/29/18 at 04:00 Glucose (Glutose) 22.5 gm Q15M PRN PO DECREASED GLUCOSE; Start 08/29/18 at 04:00 Dextrose (D50w Syringe) 25 ml Q15M PRN IV DECREASED GLUCOSE; Start 08/29/18 at 04:00 Dextrose (D50w Syringe) 50 ml Q15M PRN IV DECREASED GLUCOSE; Start 08/29/18 at 04:00 Glucagon (Glucagen) 1 mg Q15M PRN IM DECREASED GLUCOSE; Start 08/29/18 at 04:00 Glucose (Glutose) 15 gm Q15M PRN BUCCAL DECREASED GLUCOSE; Start 08/29/18 at 04:00 Morphine Sulfate (morphine) 2 mg Q4H PRN IV SEVERE PAIN LEVEL 7-10; Start 08/29/18 at 04:00 Acyclovir (Zovirax) 800 mg Q12 PO Last administered on 09/01/18at 20:55; Admin Dose 800 MG; Start 09/01/18 at 21:00 Cephalexin (Keflex) 250 mg Q12 PO Last administered on 09/01/18at 20:56; Admin Dose 250 MG; Start 09/01/18 at 09:00 ZELDA CANNON MD Sep 02, 2018 07:07
[2018-09-02] MEDS: INSULIN ASPART [NOVOLOG] 3 ML PEN SC SCH ×2 (08:00→12:00)
[2018-09-02] MEDS: AMLODIPINE 10 MG TAB PO SCH (08:23)
[2018-09-02] MEDS: ACYCLOVIR 800 MG TAB PO SCH (08:23)
[2018-09-02] MEDS: CEPHALEXIN 250 MG CAP PO SCH (08:23)
[2018-09-02] MEDS: METOPROLOL 100 MG TAB PO SCH (08:24)
--- NOTE | 2018-09-02 09:10 | PN ---
DATE: 09/02/2018 SUBJECTIVE: The patient is stable, no events overnight. No fevers, chills, nausea, or vomiting. OBJECTIVE: VITAL SIGNS: Blood pressure is 167/79, respirations 18, pulse 78, temperature 98.2. HEENT: Head is normocephalic. NECK: Supple. HEART: Regular rate. LUNGS: Show diminished breath sounds at the base. ABDOMEN: Soft, nontender to palpation. No rebound or guarding. EXTREMITIES: Negative for clubbing, cyanosis, no edema. DERMATOLOGIC: No rashes. MUSCULOSKELETAL: No joint effusion. NEUROLOGIC: No change in exam. MEDICATIONS: Reviewed. LABORATORY DATA: From 09/02/2018 shows sodium 137, potassium 3.7, BUN 61, creatinine 3.11 phosphorus 5.4. White count 10.3, hemoglobin 10.3, platelet count is 191. ASSESSMENT AND PLAN: 1. Nonoliguric acute kidney injury on top of chronic kidney disease with unknown baseline creatinine . Etiology of acute kidney injury is felt to be multifactorial secondary to hemodynamics, questionab le interstitial nephritis. The patient is also on acyclovir, which can be a contributing factor to a cute kidney injury. The patient's renal function has been fluctuating, but overall stable around a c reatinine of 3.0 and 3.2 mg/dL. At this point, continue current treatment plans, supportive care, re celia dose all medicines. 2. Chronic kidney disease with proteinuria. Etiology is unclear, possibly from hypertensive nephros clerosis, questionable diabetes. The patient is currently in acute kidney injury as stated above. C ontinue current treatment plan. Continue disease factor modification. 3. Anemia. Continue to monitor hemoglobin and hematocrit levels. 4. Mineral bone disorder, monitor calcium and phosphorus levels. 5. Hypertension. Blood pressure is currently fluctuating. Currently, we will continue to hold ARB and hydrochlorothiazide in setting of acute kidney injury. We will otherwise adjust blood pressure r egimen as needed. 6. Shingles. Continue current medical management. 7. Urinary tract infection. Continue current antibiotic regimen. 8. Right eye conjunctivitis. Continue medical management. 9. History of meningioma. Continue to monitor. Dictated By: MOE GAMEZ/HAMILTON Conf#: [id number] DID#: [id number] CC: ZHANNA DIAZ MD; MARGI RUIZ MD; JAX ANGEL MD;*[facility]*
--- NOTE | 2018-09-02 12:07 | CONS ---
Assessment/Plan Assessment/Plan Hospital Course (Demo Recall) HTN: BP as high as 241/108, now improved. Usually also on olmesartan 40mg at home but held due to renal failure. Now better controlled Acute on chronic renal failure: last known Cr to me was 1.8 05/2017. Worsening over past few days but better today Periorbital cellulitis Zoster Meningioma DM -amlodipine 10mg daily -clonidine 0.1mg TID (usually on BID) -metoprolol 100mg qam, 50mg qpm -olmesartan being held due to renal failure Consultation Date/Type/Reason Admit Date/Time Aug 28, 2018 at 20:53 Initial Consult Date 09/01/18 Type of Consult Cardiology Requesting Provider: MARGI RUIZ Date/Time of Note DATE: 09/02/18 TIME: 12:05 24 HR Interval Summary Free Text/Dictation No events. Mild facial pain but better. BP overall better Exam/Review of Systems Exam Vitals Vital Signs Date Temp Pulse Resp B/P (MAP) Pulse Ox O2 O2 Flow FiO2 Time Delivery Rate 09/02/18 98.4 70 18 167/79 100 Room Air 11:28 (108) Intake and Output 09/01/18 09/01/18 09/02/18 1515:00 23:00 07:00 IntakeIntake Total 700 ml BalanceBalance 700 ml Constitutional: alert, oriented Psych: no complaints, nl mood/affect Head: normocephalic, atraumatic Neck: supple; No jvd Respiratory: clear to auscultation; No crackles/rales Cardiovascular: regular rate and rhythm, systolic murmur (2/6 JULIANA); No edema Gastrointestinal: soft, non-tender; No distended Neurological: nl mental status, nl speech Results Result Diagram: 09/02/18 0538 09/02/18 0538 Results 24hrs Laboratory Tests Test 09/01/18 12:08 09/01/18 17:24 09/01/18 17:40 09/01/18 20:21 Bedside Glucose 113 132 154 Urine Color YELLOW Urine Clarity SLIGHTLY CLOUDY A Urine pH 5.0 Urine Specific 1.017 [place] Urine Ketones NEGATIVE Urine Nitrite NEGATIVE Urine Bilirubin NEGATIVE Urine NEGATIVE Urobilinogen Urine Leukocyte NEGATIVE Esterase Urine Microscopic 0 RBC Urine Microscopic 6 H WBC Urine Squamous FEW Epithelial Cells Urine Hemoglobin NEGATIVE Urine Random 123.34 Creatinine Urine Random 28 L Sodium Urine Glucose 1+ H Urine Total 277.0 H Protein Test 09/02/18 05:38 09/02/18 08:19 White Blood Count 10.3 Red Blood Count 4.74 Hemoglobin 12.3 Hematocrit 37.4 Mean Corpuscular 78.9 L Volume Mean Corpuscular 25.9 L Hemoglobin Mean Corpuscular 32.9 Hemoglobin Concen t Red Cell 13.6 Distribution Width Platelet Count 191 Mean Platelet 9.8 Volume Immature 0.800 H Granulocytes % Neutrophils % 55.9 Lymphocytes % 33.3 Monocytes % 8.9 Eosinophils % 0.8 Basophils % 0.3 Nucleated Red 0.0 Blood Cells % Immature 0.080 H Granulocytes # Neutrophils # 5.8 Lymphocytes # 3.4 H Monocytes # 0.9 Eosinophils # 0.1 Basophils # 0.0 Nucleated Red 0.0 Blood Cells # Sodium Level 137 Potassium Level 3.7 Chloride Level 106 Carbon Dioxide 21 Level Anion Gap 10 # Blood Urea 61 H Nitrogen Creatinine 3.11 H Est Glomerular Filtrat Rate mL/min Glucose Level 97 Calcium Level 8.4 Phosphorus Level 5.4 H Magnesium Level 2.3 Bedside Glucose 132 Medications Medication Current Medications Clonidine (Catapres) 0.1 mg Q8 PO Last administered on 09/02/18at 05:48; Admin Dose 0.1 MG; Start 08/28/18 at 22:00 Metoprolol Tartrate (Lopressor) 50 mg QPM PO Last administered on 09/01/18at 20:55; Admin Dose 50 MG; Start 08/29/18 at 21:00 Metoprolol Tartrate (Lopressor) 100 mg QAM PO Last administered on 09/02/18at 08:24; Admin Dose 100 MG; Start 08/28/18 at 21:30 Hydralazine HCl (Apresoline) 20 mg Q6H PRN IV ELEVATED BLOOD PRESSURE Last administered on 08/29/18at 03:36; Admin Dose 20 MG; Start 08/28/18 at 21:30 Hydralazine HCl (Apresoline) 10 mg Q4H PRN IV ELEVATED BLOOD PRESSURE Last ad ministered on 09/01/18at 06:12; Admin Dose 10 MG; Start 08/28/18 at 21:30 IV Flush (NS 3 ml) 3 ml PER PROTOCOL IV ; Start 08/28/18 at 21:30 Ondansetron HCl (Zofran Inj) 4 mg Q6H PRN IV NAUSEA/VOMITING Last administered on 08/30/18at 13:41; Admin Dose 4 MG; Start 08/28/18 at 21:30 Acetaminophen (Tylenol Tab) 650 mg Q6H PRN PO .PAIN 1-3 OR TEMP; Start 08/28/18 at 21:30 Docusate Sodium (Colace) 100 mg Q12H PRN PO .CONSTIPATION; Start 08/28/18 at 21:30 Bisacodyl (Dulcolax) 5 mg DAILY PRN PO .CONSTIPATION; Start 08/28/18 at 21:30 Ciprofloxacin HCl (Ciloxan 0.3% Oph) 2 drop Q6H RIGHT EYE Last administered on 09/02/18at 05:45; Admin Dose 2 DROP; Start 08/29/18 at 00:00; Stop 09/04/18 at 23:59 Amlodipine Besylate (Norvasc) 10 mg DAILY PO Last administered on 09/02/18at 08:23; Admin Dose 10 MG; Start 08/29/18 at 04:00 Acetaminophen/ Hydrocodone Bitart ([place] (5/325)) 1 tab Q4H PRN PO .PAIN 4-6 Last administered on 08/30/18at 06:03; Admin Dose 1 TAB; Start 08/29/18 at 05:30 Diagnostic Test (Pha) (Accu-Chek) 1 ea 02 XX ; Start 08/30/18 at 02:00 Insulin Aspart (Novolog Insulin Pen) NOVOLOG *MILD* ALGORITHM WITH MEALS BEDTIME SC Last administered on 09/01/18at 09:01; Admin Dose 2 UNIT; Start 08/29/18 at 08:00 Miscellaneous Information 1 ea NOTE XX ; Start 08/29/18 at 04:00 Glucose (Glutose) 15 gm Q15M PRN PO DECREASED GLUCOSE; Start 08/29/18 at 04:00 Glucose (Glutose) 22.5 gm Q15M PRN PO DECREASED GLUCOSE; Start 08/29/18 at 04:00 Dextrose (D50w Syringe) 25 ml Q15M PRN IV DECREASED GLUCOSE; Start 08/29/18 at 04:00 Dextrose (D50w Syringe) 50 ml Q15M PRN IV DECREASED GLUCOSE; Start 08/29/18 at 04:00 Glucagon (Glucagen) 1 mg Q15M PRN IM DECREASED GLUCOSE; Start 08/29/18 at 04:00 Glucose (Glutose) 15 gm Q15M PRN BUCCAL DECREASED GLUCOSE; Start 08/29/18 at 04:00 Morphine Sulfate (morphine) 2 mg Q4H PRN IV SEVERE PAIN LEVEL 7-10; Start 08/29/18 at 04:00 Acyclovir (Zovirax) 800 mg Q12 PO Last administered on 09/02/18at 08:23; Admin Dose 800 MG; Start 09/01/18 at 21:00 Cephalexin (Keflex) 250 mg Q12 PO Last administered on 09/02/18at 08:23; Admin Dose 250 MG; Start 09/01/18 at 09:00 KATHERYN VAUGHN Sep 02, 2018 12:07
[2018-09-02] MEDS ORDERED: CEPH250C PO (16:02)
[2018-09-02] MEDS ORDERED: ACYC800T PO (16:02)
[2018-09-02] MEDS ORDERED: AMLO-147 PO (16:02)
--- NOTE | 2018-09-02 16:04 | PDOCDIS ---
Discharge Instructions CONDITION [id number] Patient Condition: [id number] Good HOME CARE INSTRUCTIONS: [id number] Special Diet: [id number] Diabetic ACTIVITY: [id number] Activity Restrictions: [id number] No Restrictions FOLLOW UP/APPOINTMENTS Follow-up Plan FOLLOW UP WITH YOUR PRIMARY CARE PHYSICIAN IN 1-2 WEEKS MARGI RUIZ Sep 02, 2018 16:04
--- NOTE | 2018-09-02 16:11 | DS ---
Date/Time of Note Date/Time of Note DATE: 09/02/18 TIME: 16:06 Discharge Summary Admission/Discharge Info Admit Date/Time Aug 28, 2018 at 20:53 Discharge Date/Time September 02, 2018 Discharge Diagnosis Shingles with periorbital cellulitis - Continues to improve, therapies working -DC with acylovir and Keflex per Dr Freire -Status post Cipro gtt Severe hypertension - Much improved - Continue home regimen of amlodipine, clonidine 0.1 q8h, metoprolol, hold ARB due to acute kidney injury but should resume as outpatient KERRY on CKD-creatinine now improving - Unknown baseline creatinine - Hold ARB upon DC but resume as outpatient -Nephrology consultation appreciated Incidental meningioma -Outpatient workup -Asymptomatic Patient Condition: Good Hospital Course Patient is a 83 yo female with CKD, hypertension presents with shingles of the face and periorbital cellulitis, found to have incidental meningioma and severe hypertension. Patient's shingles and periorbital cellulitis did improve with acyclovir and Keflex. Patient was being followed by ID, patient also had acute kidney injury on CKD and was seen by nephrology. Patient's renal function did stabilize, blood pressure was elevated but did improve with medications, patient's ARB was held secondary to acute kidney injury. Patient did have a CT of the brain that did show an incidental meningioma, patient was asymptomatic and did not require inpatient workup. Patient was stable for DC per ID and nephrology with plans to continue Keflex and acyclovir p.o. for several more days. Patient's renal function did stabilize, on day of discharge patient's vitals, labs and physical exam are stable. Home Meds Active Scripts Amlodipine Besylate* (Amlodipine Besylate*) 10 Mg Tablet, 10 MG PO DAILY, #60 TAB Prov:MARGI RUIZ 09/02/18 Cephalexin* (Cephalexin*) 250 Mg Capsule, 250 MG PO Q12 for 2 Days, #4 CAP Prov:MARGI RUIZ 09/02/18 Acyclovir* (Acyclovir*) 800 Mg Tablet, 800 MG PO Q12 for 4 Days, #8 TAB Prov:MARGI RUIZ 09/02/18 Reported Medications Hydrochlorothiazide* (Hydrochlorothiazide*) 12.5 Mg Tablet, 12.5 MG PO DAILY, #30 TAB 08/28/18 Metformin* (Glucophage*) 500 Mg Tab, 500 MG PO BID WITH MEALS, #90 TAB 08/28/18 Metoprolol Tartrate* (Lopressor*) 100 Mg Tablet, 100 MG PO QAM, #60 TAB 08/28/18 Metoprolol Tartrate* (Lopressor*) 50 Mg Tab, 50 MG PO QPM, #60 TAB 08/28/18 Clonidine Hcl* (Clonidine Hcl*) 0.1 Mg Tab, 0.1 MG PO Q8, TAB 08/28/18 Discontinued Reported Medications Olmesartan Medoxomil (Benicar) 40 Mg Tablet, 40 MG PO DAILY, #30 TAB 08/28/18 Follow-up Plan FOLLOW UP WITH YOUR PRIMARY CARE PHYSICIAN IN 1-2 WEEKS Primary Care Provider Not On Staff Doctor Time spent on discharge: > 30 minutes MARGI RUIZ Sep 02, 2018 16:11
== END 2018-09-02 17:29 | disposition home health service (06) | DRG 866 ==
LOC: E/R 15:24 → 6WM 20:53
PROVIDERS: ADMIT Family Medicine; ATTEND Internal Medicine
DX: B02.8 Zoster with other complications (principal); L03.213 Periorbital cellulitis; N17.9 Acute kidney failure, unspecified; N39.0 Urinary tract infection, site not specified; I16.0 Hypertensive urgency; I12.9 Hypertensive chronic kidney disease with stage 1 through stage 4 chronic kidney disease, or unspecified chronic kidney disease; E11.22 Type 2 diabetes mellitus with diabetic chronic kidney disease; N18.9 Chronic kidney disease, unspecified; D32.0 Benign neoplasm of cerebral meninges; E86.0 Dehydration; H10.89 Other conjunctivitis; B96.20 Unspecified Escherichia coli [E. coli] as the cause of diseases classified elsewhere
CPT/HCPCS: 36415; 70450; 70486; 70553; 71045; 76775; 80048; 80053; 80061; 81001; 81003; 82043; 82570; 82962; 83036; 83690; 83735; 84100; 84155; 84156; 84165; 84166; 84300; 84443; 84484; 85025; 86320; 86325; 87070; 87081; 87086; 93005; 93306; 96374; 96375; J0133; J0360; J0696; J1815; J1885; J2405; J7030